=== PATIENT | male | born 1960 | race Caucasian/White ===

== ENCOUNTER 2016-08-29 23:25 | Inpatient (IN) | payer BC ==
[~2016-08-29 23:25] MED LIST: Heparin 2 UNITS/ML IVPREMIX* 3,000 ML IV ONE; Iohexol 350 (CONTRAST) 200 ML MDV IV ONE; Lidocaine 1% INJ* 10 MG/ML 30 ML SDV ONE; Midazolam* 1 MG/ML 5 ML VIAL (5 MG) ONE; fentaNYL* 50 MCG/ML 2 ML VIAL (100 MCG VIAL) ONE; nitroGLYCERIN DRIP* 250 ML ONE
[2016-08-29] MEDS ORDERED: Iohexol 350 (CONTRAST) 200 ML MDV IV ONE (23:42)
[2016-08-29] MEDS ORDERED: Heparin 2 UNITS/ML IVPREMIX* 2,000 ML IV ONE (23:42)
[2016-08-30] MEDS ORDERED: Bivalirudin(*) 250 MG VIAL ONE (00:11)
[2016-08-30] MEDS ORDERED: Adenosine* 3 MG/ML VIAL ONE (00:11)
[2016-08-30] MEDS ORDERED: NitroPRUSSide* 25 MG/ML 2 ML VIAL IVPB ONE (00:11)
[2016-08-30] MEDS ORDERED: Acetaminophen TAB* 325 MG PO PRN (02:29)
[2016-08-30] MEDS ORDERED: Docusate CAP* 100 MG PO PRN (02:29)
[2016-08-30] MEDS ORDERED: fentaNYL* 50 MCG/ML 2 ML VIAL (100 MCG VIAL) IV PRN (02:29)
[2016-08-30] MEDS ORDERED: Nitroglycerin TAB 0.4 MG* 0.4 MG TAB SL PRN (02:29)
[2016-08-30] MEDS ORDERED: Ondansetron INJ* 2 MG/ML VIAL IV PRN (02:29)
[2016-08-30] MEDS ORDERED: NS 0.9% 1000 ML* 1,000 ML IV SCH (02:30)
[2016-08-30] MEDS ORDERED: Albuterol HFA INHALER* 8 gm MDI INH PRN (02:44)
[2016-08-30] MEDS ORDERED: nitroGLYCERIN DRIP* 25,000 MCG in PREMIX* 0 ML IV SCH (04:00)
[2016-08-30 06:06] LABS: Hematocrit 40 % (42-52); Hemoglobin 13.7 g/dl (14.0-18.0); Mean Corpuscular HGB Conc 35 g/dl (31-36); Mean Corpuscular Hemoglobin 33 pg (27-31); Mean Corpuscular Volume 95 fL (80-94); Mean Platelet Volume 7 um3 (7.4-10.4); Red Blood Count 4.21 10^6/ul (4.0-5.4); Red Cell Distribution Width 16 % (10.5-15); White Blood Count 10.3 10^3/ul (3.5-10.8)
[2016-08-30] MEDS: Atorvastatin* 80 MG TAB PO SCH ×2 (06:18→17:17)
[2016-08-30 06:25] LABS: Albumin 3.3 g/dL (3.2-5.2); BUN/Creatinine Ratio 20.8 (8-20); Calcium 8.7 mg/dL (8.6-10.3); EGFR African American 144.2 (>60); EGFR Non-African American 112.1 (>60); Globulin 2.8 g/dL (2-4); HDL Cholesterol 72.9 mg/dL; Potassium 3.9 mmol/L (3.5-5.0); Total Bilirubin 0.8 mg/dL (0.2-1.0); Total Protein 6.1 g/dL (6.4-8.9)
[2016-08-30 06:33] LABS: Troponin I 3.2 ng/mL (<0.04)
[2016-08-30] MEDS: Aspirin Low Dose CHEW TAB* 81 MG PO SCH (08:53)
[2016-08-30] MEDS: Metoprolol Tartrate TAB* 25 MG PO SCH ×3 (08:53→19:54)
[2016-08-30] MEDS: Ticagrelor* 90 MG TAB PO SCH ×2 (08:53→19:54)
[2016-08-30] MEDS ORDERED: Pneumococcal *Vac Polyvalent 0.5 ML VIAL IM ONE (09:00)
[2016-08-30] MEDS: Mometasone/Formoter 200/5 MDI INH SCH ×2 (10:16→19:52)
--- NOTE | 2016-08-30 11:54 | ECHO ---
Patient: JERSEY BAIG [facility] Rec#: [id number] : 1960 Date: 08/30/2016 Age: 56y Height: 180 cm / 70.9 in Weight: 107 kg / 235.8 lbs Sex: M BSA: 2.26 Room#: [facility] Admit Date#: 08/30/2016 Type: Inpatient Referring: Luis Gilbert MD Reading: Luis Gilbert MD Ear Nose Throat Physician: Pranay Larios RDCS Transthoracic Echocardiogram Indication: S/P PCI Rhythm: NSR Findings History: STEMI Technical Comments: The study quality is fair. Completed 1135 The study is technically limited due to poor parasternal windows. The study is technically limited due to patient body habitus. Left Ventricle: The left ventricular chamber size is normal. Global left ventricular wall motion and contractility are within normal limits. There is normal left ventricular systolic function. The estimated ejection fraction is 50-55%. Left Atrium: The left atrial chamber size is normal. Right Ventricle: The right ventricular cavity size is normal. The right ventricular global systolic function is normal. Right Atrium: The right atrial cavity size is normal. Aortic Valve: The aortic valve is trileaflet. There is trace to mild aortic regurgitation. There is no evidence of aortic stenosis. Mitral Valve: The mitral valve leaflets appear normal. There is a trace of mitral regurgitation. There is no evidence of mitral stenosis. Tricuspid Valve: The tricuspid valve appears normal in structure and function. There is a physiologic tricuspid regurgitation. Pulmonic Valve: The pulmonic valve structure is not well visualized. Pericardium: There is no pericardial effusion. Aorta: There is no dilatation of the ascending aorta. The aortic arch is not well visualized. There is no dilation of the aortic root. Pulmonary Artery: The main pulmonary artery is not well visualized. Venous: The inferior vena cava appears normal in size. There is a greater than 50% respiratory change in the inferior vena cava dimension. Conclusions The study is technically limited due to patient body habitus. The study is technically limited due to poor parasternal windows. The left ventricular chamber size is normal. Global left ventricular wall motion and contractility are within normal limits. Overall LV EF is estimated at 55 %. No significant wall motion abnormalities are noted. No significant valvular disease: There is a trace to mild aortic regurgitation. There is a trace of mitral regurgitation. There is a physiologic tricuspid regurgitation. No reports of prior studies are offered for comaprison. Measurements Name Value Normal Range RVIDd (AP) 2D 2.6 cm (0.9 - 2.6) RVDdMajor (2D) 2.2 cm (2.2 - 4.4) RAd ISD 4CH 5.5 cm (3.4 - 4.9) RA (A4C)W 3 cm (2.9 - 4.6) IVSd (2D) 1.1 cm (0.6 - 1) LVPWd (2D) 0.6 cm (0.6 - 1) LVIDd (2D) 5.4 cm (3.6 - 5.4) LVIDs (2D) 3.8 cm - LV FS (2D) 28 % (25 - 45) Aortic Annulus 2.1 cm (1.4 - 2.6) Ao root diameter (2D) 3.2 cm (2.1 - 3.5) Ascending Ao 3.2 cm (2.1 - 3.4) LA dimension (AP) 2D 3.8 cm (2.3 - 3.8) LAd ISD 4CH 5.9 cm (2.9 - 5.3) LA ISD 4CH W 3.1 cm (2.5 - 4.5) Name Value Normal Range LA ESV SP 4CH (A/L) 61 ml - LA ESV SP 2CH (A/L) 50 ml - LA ESV BP (A/L) 57 ml - LA ESV BP (A/L) index 25.55 ml/m2 - LA ESV SP 4CH (MOD) 53.58 ml - LA ESV SP 2CH (MOD) 49 ml - Name Value Normal Range MV E-wave Vmax 0.71 m/sec - MV deceleration time 145 msec - MV A-wave Vmax 0.76 m/sec - MV E:A ratio 0.93 ratio - LV septal e' Vmax 0.1 m/sec - LV lateral e' Vmax 0.1 m/sec - LV E:e' septal ratio 7.1 ratio - LV E:e' lateral ratio 7.1 ratio - Name Value Normal Range LVOT diameter 2 cm - LVOT Vmax 1.2 m/sec - Name Value Normal Range IVC diameter 1.05 cm - Name Value Normal Range PV Vmax 0.92 m/sec -
--- NOTE | 2016-08-30 12:55 | HP ---
ADMISSION HISTORY AND PHYSICAL: DATE OF ADMISSION: 08/30/16 CHIEF COMPLAINT: The patient transferred from [facility] Emergency Room with acute ST segment elevation inferior wall myocardial infarction. HISTORY OF PRESENT ILLNESS: The patient is a pleasant 56-year-old gentleman with no prior known cardiac history. Specifically, he denies any history of myocardial infarction, congestive heart failure, significant heart rhythm disturbance. The patient was in his usual state of health and yesterday while he was lying in bed at 8:30 p.m., he started developing the onset of bilateral elbow discomfort with radiation to the jaw. He apparently had a dental issue in the past and his gave him Percocet to see if it would help. Within 30 minutes, he started developing chest heaviness as well. It was not getting better and as such they decided to go to [facility]. As soon as he arrived, they performed an EKG and reportedly diagnosed him with an acute ST segment elevation inferior wall myocardial infarction. The emergency provider there then reportedly called [facility]'s Emergency Room and spoke to Dr. Jerzy Ozuna to accept the patient in transfer. I was then called through the field laboratory operator at [facility], stating that the emergency room provider at [facility] was on the phone. I connected with her and she stated that she had a patient that had been accepted by Dr. Jerzy Ozuna in transfer and was having a STEMI. After I got the basic information, I then called Dr. Ozuna and I spoke to him and asked him if he had already called in a STEMI. At that point, I called the field laboratory operator myself and asked her to notify a STEMI alert so as to get our staff in as quickly as possible to be ready for him so that we could possibly even bypass the emergency room. On arrival of the patient, he was still having ongoing symptoms. The risks and benefits of cardiac catheterization were explained to him and a brief examination ensued. He understood the risks and benefits and we opted to bring him to the catheterization lab on an ED bypass basis. Of note, when I had spoken to the provider over at [facility], I had asked her to bolus the patient with 4000 units of heparin, which she did. In the emergency room, we gave 180 mg of Brilinta. The patient was subsequently brought to the cardiovascular lab for emergent cath and possible intervention. PAST MEDICAL HISTORY: Includes chronic obstructive lung disease, hyperlipidemia , non-insulin requiring diabetes and anxiety. His cardiac risk factors included diabetes, high cholesterol and a significant smoking history of some 45 years of smoking 3 packs a day, only recently trying to cut down. PAST SURGICAL HISTORY: No significant surgical history. ALLERGIES: He has no known drug allergies. FAMILY HISTORY: Also significant for brother who had two bypasses, first one in his 40s; a brother who had stent in his 50s. REVIEW OF SYSTEMS: Pertinent to proceeding to the cardiovascular laboratory. The patient denied any history of hematochezia, hematemesis or hematuria. Denied any known history of renal insufficiency or any known history of dye allergy. PHYSICAL EXAMINATION VITAL SIGNS: Briefly, on patient's arrival on the ambulance ride in, blood pressure 101/69, pulse 69, respirations 18. NECK: Supple with no increased JVP. LUNGS: Clear. HEART: Revealed a regular rate and rhythm. Quite distant in nature due to large chest size. ABDOMEN: Significantly obese, soft, and nontender. EXTREMITIES: Without edema. The femoral pulse was present without significant bruit. DIAGNOSTIC STUDIES AND LABORATORY DATA: Review of EKG from [facility] revealed acute ST segment elevation in II, III and aVF with reciprocal change in aVL. Minimal T-wave inversion in V1 and V2. OVERALL ASSESSMENT: The patient now presents in the throes of an acute inferior wall myocardial infarction. His symptoms are somewhat better but not gone. At this point, the risks and benefits and alternatives were explained to the patient and he understands them and wishes to proceed. The patient has already had heparin therapy, Brilinta therapy and aspirin. Further management will be made pending results at the time of cardiac catheterization. CC: CORY Torres, at Dr. Miller Wilhelm's office in [place], [place]. * [id number]/[facility]PS #: [id number] MTDD
[2016-08-30 13:18] LABS: Troponin I 8.68 ng/mL (<0.04)
[2016-08-30] MEDS ORDERED: oxyCODONE/Acetamin 5/325 MG* TAB PO PRN (17:10)
[2016-08-30 18:39] LABS: Troponin I 7.99 ng/mL (<0.04)
[2016-08-30 19:05] LABS: Hematocrit 42 % (42-52); Hemoglobin 14.1 g/dl (14.0-18.0); Mean Corpuscular HGB Conc 34 g/dl (31-36); Mean Corpuscular Hemoglobin 32 pg (27-31); Mean Corpuscular Volume 96 fL (80-94); Mean Platelet Volume 8 um3 (7.4-10.4); Red Blood Count 4.37 10^6/ul (4.0-5.4); Red Cell Distribution Width 16 % (10.5-15); White Blood Count 12.1 10^3/ul (3.5-10.8)
[2016-08-30] MEDS: BuPROPion XL* 150 MG TAB.XL PO SCH (19:54)
[2016-08-30] MEDS: Cetirizine* 10 MG TAB PO SCH (19:54)
[2016-08-30] MEDS: Sertraline* 100 MG TAB PO SCH (19:54)
[2016-08-30] MEDS: CMC:Pantoprazole TAB (NF) 40 MG TAB PO SCH (19:55)
[2016-08-30] MEDS: PTO:Linagliptin (NF) 5 MG TAB PO SCH (19:55)
[2016-08-30] MEDS ORDERED: Omeprazole CAP* 20 MG PO SCH (21:00)
[2016-08-31 06:50] LABS: Hematocrit 42 % (42-52); Hemoglobin 14.4 g/dl (14.0-18.0); Mean Corpuscular HGB Conc 34 g/dl (31-36); Mean Corpuscular Hemoglobin 33 pg (27-31); Mean Corpuscular Volume 96 fL (80-94); Mean Platelet Volume 8 um3 (7.4-10.4); Red Blood Count 4.36 10^6/ul (4.0-5.4); Red Cell Distribution Width 15 % (10.5-15); White Blood Count 10.7 10^3/ul (3.5-10.8)
[2016-08-31 06:59] LABS: Albumin 3.5 g/dL (3.2-5.2); BUN/Creatinine Ratio 13.4 (8-20); Calcium 9.3 mg/dL (8.6-10.3); EGFR African American 156.7 (>60); EGFR Non-African American 121.8 (>60); Globulin 2.9 g/dL (2-4); Potassium 4.4 mmol/L (3.5-5.0); Total Bilirubin 1.1 mg/dL (0.2-1.0); Total Protein 6.4 g/dL (6.4-8.9)
[2016-08-31] MEDS: Aspirin Low Dose CHEW TAB* 81 MG PO SCH (08:00)
[2016-08-31] MEDS: Metoprolol Tartrate TAB* 25 MG PO SCH ×2 (08:01→20:34)
[2016-08-31] MEDS: Ticagrelor* 90 MG TAB PO SCH ×2 (08:01→20:34)
[2016-08-31] MEDS: CMC:Pantoprazole TAB (NF) 40 MG TAB PO SCH (08:01)
[2016-08-31] MEDS ORDERED: Pneumococcal *Vac Polyvalent 0.5 ML VIAL IM ONE (09:00)
[2016-08-31] MEDS: Mometasone/Formoter 200/5 MDI INH SCH ×2 (10:16→22:34)
[2016-08-31] MEDS: PTO:Linagliptin (NF) 5 MG TAB PO SCH (18:35)
[2016-08-31] MEDS: Atorvastatin* 80 MG TAB PO SCH (18:35)
[2016-08-31] MEDS: Cetirizine* 10 MG TAB PO SCH (20:34)
[2016-08-31] MEDS: Sertraline* 100 MG TAB PO SCH (20:34)
[2016-08-31] MEDS: BuPROPion XL* 150 MG TAB.XL PO SCH (20:34)
[2016-09-01 07:36] VITALS: BP 111/67
[2016-09-01] MEDS: Aspirin Low Dose CHEW TAB* 81 MG PO SCH (09:14)
[2016-09-01] MEDS: Ticagrelor* 90 MG TAB PO SCH (09:14)
[2016-09-01] MEDS: CMC:Pantoprazole TAB (NF) 40 MG TAB PO SCH (09:15)
[2016-09-01] MEDS: Metoprolol Tartrate TAB* 25 MG PO SCH (09:15)
[2016-09-01] MEDS: Mometasone/Formoter 200/5 MDI INH SCH (09:36)
[2016-09-01 10:25] LABS: Hematocrit 45 % (42-52); Hemoglobin 15.1 g/dl (14.0-18.0); Mean Corpuscular HGB Conc 34 g/dl (31-36); Mean Corpuscular Hemoglobin 32 pg (27-31); Mean Corpuscular Volume 96 fL (80-94); Mean Platelet Volume 8 um3 (7.4-10.4); Red Blood Count 4.65 10^6/ul (4.0-5.4); Red Cell Distribution Width 16 % (10.5-15); White Blood Count 13.4 10^3/ul (3.5-10.8)
[2016-09-01 17:30] LABS: Heparin PF4 Ab Reactivity 8 % (<20); Heparin PF4 Antibody Interp Negative (Negative)
--- NOTE | 2016-09-01 21:35 | CATH ---
CARDIAC CATHETERIZATION AND INTERVENTIONAL REPORT: DATE OF PROCEDURE: 08/29/2016 - ROOM #445 DATE OF DICTATION: 09/01/16 FAMILY DOCTOR: Dr. Shanta Edgar, [place]. INDICATION FOR PROCEDURE: The patient presents with ST-segment elevation inferior wall myocardial infarction. PROCEDURE: Coronary arteriography, left heart catheterization, thrombectomy, and placement of a 4.0 x 20 mm Synergy drug-eluting stent overlapped distally with a 3.5 x 12 mm long Synergy drug-eluting stent, post dilated to 4.2 and 3.6 mm respectively. DESCRIPTION OF PROCEDURE: The patient was interviewed and examined in the emergency room where the risks and benefits were explained, he understood them and wished to proceed. Initially, he was brought to cardiovascular lab 1 where the patient was prepped and draped in a sterile fashion. The right groin area was anesthetized with 1% lidocaine. On attempting to fluoro for locating the femoral artery, it became apparent that the equipment was not functioning normally, as the monitors were not working. The patient emergently was transferred to record label intern 2, and reprepped and draped in a sterile fashion. The right femoral artery area was again anesthetized and the right femoral artery was cannulated and a 6.5 curve sheath was placed. Coronary arteriography was performed utilizing a 5-Fijian FL4 curve left Jorge catheter. The right coronary artery was cannulated utilizing an ART 6-Fijian guide with side holes. Of note, the patient had received 4000 units of heparin in the emergency room and also received Brilinta therapy and aspirin therapy. The patient was bolused with Angiomax and an Angiomax drip was started. An 0.014 All Star wire was advanced down the right coronary artery and a Pronto V4 extraction 6-Fijian catheter was utilized for thrombectomy. Following this, the 4.0 x 20 mm stent was deployed. There was concern at the distal area of the stent placement and as such a second 3.5 mm x 12 mm Synergy stent was deployed. Following this, post deployment inflations were made utilizing a 4.0 x 8 mm long NC Emerge for the proximal stent in the overlapping area. Following that, additional injections were made into the left coronary artery. Left heart catheterization was then performed utilizing a 5-Fijian pigtail catheter advanced to the ascending aorta. The catheter was then passed across the aortic valve into the left ventricle where left ventricular pressure was recorded. Pullback was performed. Left ventriculography was not performed at that time. Additional injections into the left coronary artery were performed to further assess the left coronary artery. Following this, injection was made into right femoral sheath to assess the eligibility to utilize closure device. It was found to be acceptable for this and as such a 6/7 Fijian Mynx closure device was deployed with good hemostasis. The total contrast used was 140 cc of Omnipaque dye. The radiation exposure included 8.7 minutes of fluoro time. The air kerma radiation was 1514 milligray. Of note, during the case when SALLIE-2.5 flow was noted in the right coronary artery, the patient received bolus of 100 mcg of Nipride with improvement of flow. RESULTS: HEMODYNAMIC DATA: Left heart catheterization - central aortic pressure was recorded at 125/74 with a mean of 96, left ventricular pressure was 125 over left ventricular end- diastolic pressure of 29. CORONARY ARTERIOGRAPHY: A. Left coronary artery: 1. Left main - widely patent with no significant lesion seen. 2. Left anterior descending artery - there was mild narrowing noted in the proximal portion of left anterior ascending artery just after the first septal retort unloader of approximately 25%. More proximal to that was a longer segment of 30% narrowing with calcification seen. The rest of the left anterior descending artery supplied the mid anterior to apical region on to the distal inferior wall. No significant obstruction was seen in that vessel or the diagonal branches. 3. Circumflex artery - a nondominant vessel supplying a thin first obtuse marginal branch followed by a moderate size mid obtuse marginal branch which bifurcated to an upper and a smaller lower branch. B. Right coronary artery - a dominant vessel supplying two thin PDAs and two posterior left ventricular branches. There was a diffusely dissected mid segment with haze noted with stenosis as much as 90%. The rest of the right coronary artery had mild disease seen to the distal area prior to the PDA with 10% to 20% narrowing seen. INTERVENTION INTO RIGHT CORONARY ARTERY: Successful reduction of dissected 90% mid lesion with thrombectomy with placement of a 4.0 x 20 mm long Synergy drug-eluting stent overlapped with a 3.5 x 12 mm long Synergy drug-eluting stent dilated proximally to 4.2 mm. 0% residual stenosis. OVERALL ASSESSMENT: Successful intervention into dissected mid right coronary artery with drug- eluting stent placement utilizing a 4.0 x 20 mm long Synergy drug- eluting stent overlapped with a 3.5 x 12 mm long Synergy drug-eluting stent with SALLIE-3 flow, no dissection seen, and 0% residual stenosis. The patient will be maintained on dual-antiplatelet therapy in addition to aggressive risk factor management. Smoking cessation is paramount to his overall success of the ability to slow down progression of coronary artery disease. CC: Dr. Shanta Edgar *, CORY Torres at Dr. Miller Kimball office in [place] [id number]/[facility] #: [id number] [facility]
--- NOTE | 2016-09-01 23:06 | DS ---
DISCHARGE SUMMARY: DATE OF ADMISSION: 08/29/16 DATE OF DISCHARGE: 09/01/16 PRIMARY CARE PHYSICIAN: CORY Torres at Dr. Kimball' office in [place]. DISCHARGE DIAGNOSES: 1. Inferior wall ST elevation infarct. 2. Tobacco use. 3. Chronic obstructive pulmonary disease. 4. Hyperlipidemia. 5. Diabetes type 2. 6. Obesity. 7. Chronic back pain. 8. Family history of premature coronary disease. CONDITION AT DISCHARGE: Stable. PROCEDURES: Cardiac cath, stent placement by Dr. Gilbert on 08/20/16, 4.0 x 20, 3.5 x 12 Synergy drug-eluting stents RCA. Echocardiogram. DISCHARGE MEDICATIONS: 1. Aspirin 81 mg daily. 2. Albuterol 2 puffs q.4 hours p.r.n. 3. Lipitor 80 mg daily. 4. Wellbutrin XL 150 mg h.s. 5. Zyrtec 10 mg h.s. 6. Linagliptin 5 mg p.o. at 1900 hours. 7. Lopressor 25 mg b.i.d. 8. Dulera 200-5 nebulizer. 9. Nitroglycerin 0.4 sublingual p.r.n. 10. Protonix 40 mg daily. 11. Zoloft 100 mg at bedtime. 12. Brilinta 90 b.i.d. FOLLOWUP APPOINTMENTS: With [facility] [place] in 1 to 2 weeks. ACTIVITY: No strenuous exertion for 1 week, to not lift more than 20 pounds for 3 days. Wound care shower only for 2 days. DIET: Carbohydrate controlled, low fat, low cholesterol. HISTORY: See H and P. LABS: CBC on 08/30/16 here hemoglobin 13.7, platelet count low at 143,000. He had been normal at 182 on 08/05/16. Subsequent platelet count dropped to 129 yesterday, today's platelet count is pending. He did receive heparin at [place] and here. He has no known history of heparin allergy. He does have macrocytosis with a slightly elevated alkaline phosphatase at 113 on 08/05/16 with normal alkaline phosphatase here at admission. His troponin peaked at 8.68 , CPK-MB at 118.2. Post PCI, BMP remained stable. His LDL was 116 with total cholesterol of 201, triglycerides of 62, HDL 72.9 on admission. EKG 09/01/16 shows nondiagnostic small inferior Q waves and less than [address] elevation in lead II. He had no repolarization abnormalities. HOSPITAL COURSE: He presented with an inferior wall ST elevation infarct, underwent catheterization by Dr. Gilbert with a finding of high-grade right coronary artery stenosis which was stented with a 4.0 x 20 and 3.5 x 12 drug eluting stent with excellent angiographic results. Echocardiogram on 08/30/16 revealed LVEF of 50% to 55% with normal wall motion. He had a very small infarct by enzymes. He had no in-hospital complications including chest pain, groin issues, arrhythmias or hypotension. He is tolerating his medical regimen including high-dose statin, dual antiplatelet therapy, low dose beta-paty. He has followup arrangements to the outpatient clinic here at [place]. He received full discharge instructions, has committed to stopping smoking. He has an issue with Chantix in the past with vivid nightmares. His platelet antibody level is pending at the time of discharge as is his repeat platelet count from today. He is aware of his mild thrombocytopenia currently of unknown etiology. CC: CORY Torres at Dr. Kimball' office in [place]; Dr. Gilbert* [id number]/[facility] #: [id number] [facility]
== END 2016-09-01 10:58 | disposition home or self-care (01) | DRG 174 ==
LOC: CHICATH 23:25 → ICU 08-30 01:17 → MEDTELE 08-31 11:38
PROVIDERS: ADMIT Internal Medicine Cardiovascular Disease; ATTEND Internal Medicine Cardiovascular Disease
PROC: 02C03ZZ Extirpation of Matter from Coronary Artery, One Artery, Percutaneous Approach (ICD-10-PCS; 2016-08-29)
PROC: 3E03317 Introduction of Other Thrombolytic into Peripheral Vein, Percutaneous Approach (ICD-10-PCS; 2016-08-29)
PROC: 4A023N7 Measurement of Cardiac Sampling and Pressure, Left Heart, Percutaneous Approach (ICD-10-PCS; 2016-08-29)
PROC: B2111ZZ Fluoroscopy of Multiple Coronary Arteries using Low Osmolar Contrast (ICD-10-PCS; 2016-08-29)
PROC: 3E073KZ Introduction of Other Diagnostic Substance into Coronary Artery, Percutaneous Approach (ICD-10-PCS; 2016-08-29)
PROC: 027035Z Dilation of Coronary Artery, One Artery with Two Drug-eluting Intraluminal Devices, Percutaneous Approach (ICD-10-PCS; principal; 2016-08-29 15:00)
DX: I21.19 ST elevation (STEMI) myocardial infarction involving other coronary artery of inferior wall (principal); D69.6 Thrombocytopenia, unspecified; J44.9 Chronic obstructive pulmonary disease, unspecified; E78.5 Hyperlipidemia, unspecified; E11.9 Type 2 diabetes mellitus without complications; D75.89 Other specified diseases of blood and blood-forming organs; E66.9 Obesity, unspecified; G89.29 Other chronic pain; M54.9 Dorsalgia, unspecified; Z82.49 Family history of ischemic heart disease and other diseases of the circulatory system; Z79.82 Long term (current) use of aspirin; Z79.02 Long term (current) use of antithrombotics/antiplatelets; F41.9 Anxiety disorder, unspecified; F17.210 Nicotine dependence, cigarettes, uncomplicated; I25.10 Atherosclerotic heart disease of native coronary artery without angina pectoris; Z68.33 Body mass index [BMI] 33.0-33.9, adult
CPT/HCPCS: 36415; 80053; 80061; 82550; 82553; 84484; 85025; 85027; 85730; 86022; 93005; 93306; 94640; 94760; 99406; A9270-GY; C1725; C1757; C1760; C1769; C1876; C1887; C9606-RC; J0153; J0583; J1644; J2250; J3010

== ENCOUNTER 2019-03-27 11:21 | Inpatient (IN) | payer BC ==
--- NOTE | 2019-03-27 11:36 | ED ---
Shortness of Breath - HPI Summary HPI Summary: 58 year old M presenting to [facility] from primary care provider Dr. Kimball's office for further workup accompanied by complains of worsening shortness of breath since 1 month ago. Patient is retaining fluid per . Patient has gained 30 pounds in 1 month per . Patient reports multiple ecchymotic areas on his bilateral arms. states that patient has been having diarrhea daily for which he has been taking anti diarrheals. Patient additionally has urinary urgency per . The patient rates the pain 0/10 in severity. Symptoms aggravated by nothing. Symptoms alleviated by nothing. Patient had AK in 2017 which resulted in 2 stents per . Patient drinks alcohol but has not in a while per . - History of Current Complaint Chief Complaint: EDShortnessOfBreath Time Seen by Provider: 03/27/19 11:27 Hx Obtained From: Patient, Family/Film Processor - Onset/Duration: Lasting Weeks - 4, Still Present Timing: Constant Current Severity: None Aggravating Factors: Nothing Alleviating Factors: Nothing - Allergy/Home Medications Allergies/Adverse Reactions: Allergies Allergy/AdvReac Type Severity Reaction Status Date / Time No Known Allergies Allergy Verified 03/27/19 11:29 Home Medications: Home Medications Atorvastatin* [Lipitor 80 MG*] 80 mg PO DAILY 03/27/19 [History Confirmed ] Empaglifozin (NF) [Jardiance (Nf)] 10 mg PO DAILY 03/27/19 [History Confirmed ] Furosemide TAB* [Lasix TAB*] 20 mg PO DAILY 03/27/19 [History Confirmed 03/27/19 ] HYDROcodone/ACETAMIN 5-325 MG* [Molino 5-325 TAB*] 1 tab PO BID PRN 03/27/19 [ History Confirmed 03/27/19] Linagliptin (NF) [Tradjenta (NF)] 5 mg PO DAILY 03/27/19 [History Confirmed ] Montelukast Sodium TAB* [Singulair TAB*] 10 mg PO BEDTIME 03/27/19 [History Confirmed 03/27/19] Multivitamins/Minerals TAB* [Theragran/minerals TAB*] 1 tab PO DAILY 03/27/19 [ History Confirmed 03/27/19] Revefenacin [Yupelri] 175 mcg IH DAILY 03/27/19 [History Confirmed 03/27/19] guaiFENesin ER TAB [Mucinex*] 600 mg PO BID 03/27/19 [History Confirmed 03/27/19 ] hydrOXYzine HCL TAB* [Atarax 25 MG TAB*] 25 mg PO TID PRN 03/27/19 [History Confirmed 03/27/19] traZODone TAB* [Desyrel TAB*] 150 mg PO BEDTIME 03/27/19 [History Confirmed ] PMH/Surg Hx/FS Hx/Imm Hx Endocrine/Hematology History: Reports: Hx Diabetes Respiratory History: Reports: Hx Chronic Obstructive Pulmonary Disease (COPD), Hx Seasonal Allergies, Hx Sleep Apnea - Not diagnosed, family thinks likely GI History: Reports: Hx Gastroesophageal Reflux Disease, Hx Ulcer, Other GI Disorders - Polyps present on previous colonoscopy History: Reports: Other Problems/Disorders - Possibly enlarged prostate Musculoskeletal History: Reports: Hx Arthritis, Hx Back Problems Sensory History: Reports: Hx Contacts or Glasses Opthamlomology History: Reports: Hx Contacts or Glasses Neurological History: Reports: Hx Headaches Psychiatric History: Reports: Hx Anxiety, Hx Depression - Surgical History Surgery Procedure, Year, and Place: stent Aug 2016 Infectious Disease History: No Infectious Disease History: Denies: Traveled Outside the [place] in Last 30 Days - Family History Known Family History: Positive: Other - cancer - Social History Alcohol Use: Occasionally Alcohol Amount: 8-10 drinks 1-2x per week Hx Substance Use: No Substance Use Type: Reports: None Hx Tobacco Use: Yes Smoking Status (MU): Current Every Day Smoker Type: Cigarettes Amount Used/How Often: 13 cigarettes smoked a day Have You Smoked in the Last Year: Yes Review of Systems Positive: Other - retaining fluid Positive: Shortness Of Breath Positive: Diarrhea, Other - recent weight gain Positive: urgency Positive: Other - multiple ecchymotic areas on his bilateral arms All Other Systems Reviewed And Are Negative: Yes Physical Exam - Summary Physical Exam Summary: Appearance: The patient is well-nourished in no acute distress and in no acute pain. Patient is anicteric Skin: The skin is warm and dry, and skin color reflects adequate perfusion. He has some ecchymotic areas HEENT: The head is normocephalic and atraumatic. The pupils are equal and reactive. The conjunctivae are clear and without drainage. Nares are patent and without drainage. Mouth reveals moist mucous membranes, and the throat is without erythema and exudate. The external ears are intact. The ear canals are patent and without drainage. The tympanic membranes are intact. Neck: The neck is supple with full range of motion and non-tender. There are no carotid bruits. There is no neck vein distension. Respiratory: Chest is non-tender. Lungs are clear to auscultation and breath sounds are symmetrical and equal. Cardiovascular: Heart is regular rate and rhythm. There is no murmur or rub auscultated. There is peripheral edema and pulses are symmetrical and equal. Abdomen: The abdomen is soft, non-tender, and distended. There are normal bowel sounds heard in all four quadrants and there is no organomegaly palpated. Musculoskeletal: There is no back tenderness noted. Extremities are non-tender with full range of motion. There is good capillary refill. There is peripheral edema or calf tenderness elicited. He has a little bit of clubbing but not no palmar erythema. Neurological: Patient is alert and oriented to person, place and time. The patient has symmetrical motor strength in all four extremities. Cranial nerves are grossly intact. Deep tendon reflexes are symmetrical and equal in all four extremities. Psychiatric: The patient has an appropriate affect and does not exhibit any anxiety or depression. Triage Information Reviewed: Yes Vital Signs On Initial Exam: Initial Vitals Temp Pulse Resp BP Pulse Ox 98.5 F 69 20 142/78 85 03/27/19 11:22 03/27/19 11:22 03/27/19 11:22 03/27/19 11:22 03/27/19 11:22 Vital Signs Reviewed: Yes Diagnostics - Vital Signs Vital Signs Temp Pulse Resp BP Pulse Ox 03/27/19 11:22 98.5 F 69 20 142/78 85 - Laboratory Result Diagrams: 03/27/19 11:52 03/27/19 11:52 Lab Statement: Any lab studies that have been ordered have been reviewed, and results considered in the medical decision making process. - Radiology CXR Radiology Interpretation Completed By: Radiologist Summary of Radiographic Findings: NO ACUTE CARDIOPULMONARY PROCESS BY RADIOGRAPH. ED physician has reviewed this report. - CT CT Abd/Pel CT Interpretation Completed By: Radiologist Summary of CT Findings: Splenomegaly with nodular appearing liver. Possibility of cirrhosis should BE considered. There is moderate degree of ascites noted. No abnormal dilatation of bowel is noted. ED physician has reviewed this report. - EKG 1145 Cardiac Rate: NL - 68 BPM EKG Rhythm: Sinus Rhythm Summary of EKG Findings: Normal sinus rhythm, normal ST, no ectopy, no STEMI Re-Evaluation - Re-Evaluation First Eval Re-Evaluation Time: 16:39 Comment: Internal medicine resident in ED to do paracentesis supervised by Dr. Wilhelm Second Eval Re-Evaluation Time: 18:05 Comment: discussed dispo plan with patient. patient agreeable to discharge Third Eval Re-Evaluation Time: 18:15 Comment: patient's O2 sat in the 80s per nurse. will consult hospitalist for admission Course/Dx - Course Course Of Treatment: Mr. Coughlin has a long history of smoking and drinking. He is a daily drinker. He has had some chronic development of increased abdominal girth, shortness of breath, easy bruising and malaise. He comes in from Dr. Snyder office where he presented for the shortness of breath. His pulse ox was noted to be in the 80s and he was started on some oxygen. On arrival here he appeared to be having some ascites but was anicteric and not jaundiced. Labs were obtained and CT scan of the abdomen which showed moderate ascites. It was my feeling that this ascites may be interfering with his diaphragmatic excursion and that made be the source of shortness of breath. I consult with medicine who came and performed a paracentesis however they could only get 70 cc off. He did not improve much with that and his pulse ox dropped for try to take him off the oxygen therefore I consult medicine for admission. - Diagnoses Provider Diagnoses: Ascites - Physician Notifications Discussed Care of Patient With: Brody Barnhart Time Discussed With Above Provider: 15:03 Instructed by Provider To: Other - Dr. Barnhart, GI, recommends consulting surgery. Spoke with Dr. Bennett, surgery, at 15:05 who recommends doing a paracentesis in the ED. Spoke with Dr. Freeman, hospitalist, at 18:31 who agrees to admit patient. Discharge ED - Sign-Out/Discharge Documenting (check all that apply): Patient Departure - Admit Patient Received Moderate/Deep Sedation with Procedure: No - Discharge Plan Condition: Stable Disposition: ADMITTED TO [facility] Patient Education Materials: Ascites (ED) Referrals: Brody Barnhart MD [Medical Doctor] - 2 Days Additional Instructions: Follow up with Dr. Barnhart in the next 2-3 days. Return to the Emergency Department for new or worsening symptoms. - Billing Disposition and Condition Condition: STABLE Disposition: Admitted to [facility] - Attestation Statements Document Initiated by Liudmila: Yes Documenting Scribe: Cecilia Mckeon Provider For Whom Scribe is Documenting (Include Credential): Milton Ozuna MD Scribe Attestation: ICecilia, scribed for Milton Ozuna MD on 03/27/19 at 2059. Scribe Documentation Reviewed: Yes Provider Attestation: The documentation as recorded by the Cecilia dunn accurately reflects the service I personally performed and the decisions made by me, Milton Ozuna MD Status of Scribe Document: Viewed
[2019-03-27 12:10] LABS: ABS Eosinophils 0.1 10^3/ul (0-0.6); ABS Lymphocytes 1.1 10^3/ul (1.0-4.8); ABS Neutrophils 6.5 10^3/ul (1.5-7.7); Eosinophil % 1.6 %; Hematocrit 46 % (42-52); Lymphocyte % 12.2 %; Mean Corpuscular HGB Conc 35 g/dL (31-36); Mean Corpuscular Hemoglobin 34 pg (27-31); Mean Corpuscular Volume 97 fL (80-94); Mean Platelet Volume 9.6 fL (7.4-10.4); Nucleated Red Blood Cells % 0.1; Platelet Count 126 10^3/uL (150-450); Red Blood Count 4.77 10^6 /uL (4.18-5.48); Red Cell Distribution Width 19 % (10-15); White Blood Count 8.7 10^3/uL (3.5-10.8)
[2019-03-27 12:18] LABS: Activated Partial Thrombo Time 36.9 seconds (26.0-38.0); Calcium 8.4 mg/dL (8.6-10.3); INR 1.17 (0.82-1.09); Potassium 4.2 mmol/L (3.5-5.0)
[2019-03-27 12:21] LABS: Troponin I 0.01 ng/mL (<0.04)
[2019-03-27 12:24] LABS: Albumin/Globulin Ratio 0.9 (1-3); BUN/Creatinine Ratio 9.4 (8-20); C Reactive Protein 47.6 mg/L (<8.01); EGFR African American 191.9 (>60); EGFR Non-African American 158.6 (>60); Globulin 3.2 g/dL (2-4); Total Protein 6.2 g/dL (6.4-8.9)
[2019-03-27] MEDS ORDERED: HYDROcodone/ACETAMIN 5-325 MG* 1 TAB PO ONE (16:01)
[2019-03-27] MEDS ORDERED: Lidocaine 1% MPF ** 5 ML VIAL ONE (16:46)
[2019-03-27] MEDS ORDERED: Lidocaine 1% MPF ** 5 ML VIAL INJ ONE (17:00)
[2019-03-27] MEDS ORDERED: Lidocaine 2% MPF* 2 ML VIAL ONE ×2 (17:13)
--- NOTE | 2019-03-27 18:00 | OP ---
Operative Report - Blank - Operative Report Date of Operation: 03/27/19 Note: Procedure: Paracentesis Physician(s): Dr. Wilhelm., Dr Walter Indication:ascites Anesthesia: 1% Lidocaine Ultrasound guidance was used to locate and yaniv an ascitic pocket Percussion and shifting dullness techniques were used to identify an ascitic pocket A time-out was completed, verifying correct patient, procedure, site, positioning, and implant(s) or special equipment if applicable. Patient was positioned, prepped, and draped in the usual sterile fashion. 1% Lidocaine was used to anesthetize the area. A standard paracentesis kit needle was introduced into the peritoneal space and 100% ml clear yellow was removed. No further fluid could be aspirated. Patient also started to become uncomfortable so procedure stopped despite further Lidocaine. Further studies to be sent for cell counts, gram stain, bacterial culture, and albumin levels by Dr. Ozuna in the ED. D/W Dr. Ozuna in the ED. Blood loss: None
[2019-03-27] MEDS ORDERED: Albuterol/Ipratropium NEB.SOL* Albuterol 2.5 MG/Ipratropium 0.5 MG 3 ML INH ONE (18:22)
[2019-03-27 18:42] LABS: Body Fluid Source Peritonial Fluid
[2019-03-27 19:57] LABS: Body Fluid Mono 5 %; Body Fluid Other Cells 83
[2019-03-27] MEDS ORDERED: Ondansetron INJ* 2 MG/ML VIAL IV PRN (20:19)
[2019-03-27] MEDS ORDERED: Acetaminophen TAB* 325 MG PO PRN (20:19)
[2019-03-27] MEDS ORDERED: Al Hydrox/Mg Hydrox/Simet LIQ* 30 ML UDC PO PRN (20:19)
[2019-03-27] MEDS ORDERED: Furosemide IV* 10 MG/ML VIAL (40 MG) IV ONE (20:34)
[2019-03-27] MEDS ORDERED: Albuterol HFA INHALER* 8 gm MDI INH PRN (20:35)
[2019-03-27] MEDS ORDERED: hydrOXYzine HCL TAB* 25 MG PO PRN (20:35)
[2019-03-27] MEDS ORDERED: LORazepam INJ* 2 MG/ML 1 ML VIAL IV PUSH SCH (21:00)
[2019-03-27] MEDS ORDERED: Dextrose 50% VIAL 50 ml IV PUSH PRN (21:05)
[2019-03-27] MEDS ORDERED: Lorazepam PYXIS KEY PRN (21:15)
[2019-03-27] MEDS: HYDROcodone/ACETAMIN 5-325 MG* 1 TAB PO PRN (21:37)
[2019-03-27] MEDS: Enoxaparin(*) 40 MG/0.4 ML SYR SUBCUT SCH (22:41)
[2019-03-27] MEDS: Pantoprazole TAB * 40 MG TAB PO SCH (22:43)
[2019-03-27] MEDS: traZODone TAB* 100 MG PO SCH (22:43)
[2019-03-27] MEDS: Montelukast Sodium TAB* 10 MG PO SCH (22:43)
[2019-03-27] MEDS: Metoprolol Tartrate TAB* 25 MG PO SCH (22:43)
[2019-03-27] MEDS: guaiFENesin ER TAB 600 MG PO SCH (22:43)
[2019-03-27] MEDS: predniSONE TAB* 50 MG PO SCH (22:43)
[2019-03-28] MEDS: Albuterol/Ipratropium NEB.SOL* Albuterol 2.5 MG/Ipratropium 0.5 MG 3 ML INH SCH ×2 (00:01→03:27)
[2019-03-28] MEDS: Fluticasone-Salmeterol 500-50* DISKUS INH SCH ×2 (00:01→07:48)
--- NOTE | 2019-03-28 01:32 | HP ---
CC: CORY Torres, [place] * HISTORY AND PHYSICAL: DATE OF ADMISSION: 03/27/19 PRIMARY CARE PROVIDER: CORY Torres at [place]. ATTENDING PHYSICIAN WHILE IN THE HOSPITAL: Dr. Ashish Georges * (dictated by CORY Florez). CHIEF COMPLAINT: Shortness of breath and orthopnea. HISTORY OF PRESENT ILLNESS: Freeman Coughlin is a 58-year-old male with a history of alcohol use disorder, COPD, diabetes, chronic back pain, coronary artery disease, status post stent in 2017, who presents to the emergency department today due to multiple problems including shortness of breath and abdominal distention. The patient over the last 2 to 3 weeks has had progressive worsening of orthopnea, shortness of breath with exertion, and abdominal distention. His who is a retired nurse tells me that she has been having to help him more and more with transitioning into the bathroom and he is getting very easily short of breath and requiring albuterol inhaler. Additionally, he has gained 30 pounds in the last 6 weeks. His lower extremity edema has additionally been worsening over this 2-week period extending into his thighs per his . The patient additionally has been feeling fatigued and decreased appetite for the last month. He typically has nausea after meals related to acid reflux but it has been worsening for several months. Additionally, for the last 3 to 4 weeks, the patient has been having up to 4 episodes of diarrhea per day. The patient denies fever, chills, or chest pain. Nausea at the time of evaluation. No vomiting, hematochezia, melena, dysuria, or hematuria. The patient's CO in 2017 had presenting symptoms of bilateral severe elbow pain. The patient does not recall having any similar symptoms to this within the last several weeks nor chest pain or sudden onset of shortness of breath. The patient does typically feel short of breath with exertion, though this has been very severe compared to his baseline. Additionally, the patient has a productive cough at baseline and is normally green sputum and this is increasing in frequency a little bit per the patient. EMERGENCY DEPARTMENT COURSE: In the emergency department, the patient had vital signs upon arrival of temperature 98.5 degrees Fahrenheit, pulse 69, respiratory rate 20, oxygen saturation 85% on room air, blood pressure 142/78. He had ascites on CT abdomen and pelvis, and the flying ii instructor Dr. Wilhelm was asked to perform paracentesis. Paracentesis was performed and 100 cc were removed. Please see the operative report by Dr. Wilhelm for further information. PAST MEDICAL HISTORY: 1. Alcohol use disorder. 2. COPD. 3. Hyperlipidemia. 4. Diabetes mellitus type 2. 5. Anxiety. 6. Chronic back pain due to fall in the ED. 7. CO, status post stent placement 2016. 8. Obstructive sleep apnea, has not yet received CPAP due to recent diagnosis and insurance issues. 9. Moderate pulmonary hypertension. 10. GERD. 11. Known right middle lobe pulmonary nodule 2 mm, being followed by Dr. Luther. PAST SURGICAL HISTORY: None. HOME MEDICATIONS: 1. Lasix 20 mg p.o. daily. 2. Multivitamin 1 tab p.o. daily. 3. Yupelri 175 mcg inhaled daily. 4. Trazodone 150 mg p.o. at bedtime. 5. Zoloft 200 mg p.o. daily. 6. Advair 2 puffs inhaled b.i.d. 7. Lipitor 80 mg p.o. daily. 8. Tradjenta 5 mg p.o. daily. 9. Hydroxyzine 25 mg p.o. t.i.d. p.r.n. anxiety. 10. Singulair 10 mg p.o. daily. 11. Hydrocodone/acetaminophen 5/325 mg 1 tab p.o. b.i.d. p.r.n. severe pain. 12. Jardiance 10 mg p.o. daily. 13. Protonix 40 mg p.o. daily. 14. Aspirin 81 mg p.o. daily. 15. Albuterol 2 puffs inhaled q.4 hours p.r.n. shortness of breath/wheezing. 16. Mucinex 600 mg p.o. b.i.d. 17. Metoprolol tartrate 25 mg p.o. daily. ALLERGIES: No known drug allergies. FAMILY HISTORY: Mother of hepatic cancer at age 68. Father at age 76 due to complications related to COPD. SOCIAL HISTORY: The patient lives with his . They have children. He is a former field crop farmer and adler. He denies illicit drug use. He has a 45 - year history of smoking 2 packs per day. He has more recently been smoking 13 cigarettes per day. Additionally, the patient has had severe alcohol use for the last 20 to 30 years. More recently, he has been drinking 15 beers per day. His Silver Coughlin is his medical decision maker should he need one. Her phone number is [phone]. REVIEW OF SYSTEMS: An 11-point review of systems was completed and all pertinent positives and negatives are above in the HPI. All other systems are negative. PHYSICAL EXAMINATION GENERAL: An obese, elderly white male, lying upright in hospital bed, appearing comfortable, in no acute distress, appears older than stated age. is at bedside. HEENT: Head: Normocephalic, atraumatic. Eyes: PERRL. Sclerae anicteric. ENT: Mucous membranes moist. NECK: Supple. LUNGS: Expiratory wheezing throughout. Diminished breath sounds. Chest expansion is symmetrical on respiration. CARDIO: Regular rate and rhythm without murmurs, rubs, or gallops appreciated. ABDOMEN: Significantly round abdomen in the setting of obesity. Difficult to discern if there is hepatosplenomegaly on palpation. Normoactive bowel sounds x4 quadrants. Erythema to the lower quadrants of the abdomen with trace pitting edema. EXTREMITIES: +2 pitting edema up to the bilateral knees and lower extremities. Otherwise, no cyanosis or clubbing. NEURO: The patient is alert and oriented x3. No focal deficits. Strength is 5 /5 in all extremities. Minimally tremulous. DIAGNOSTIC STUDIES/LAB DATA: White blood cell count 8.7, hemoglobin 16, hematocrit 46, platelet count 126. Sodium 138, potassium 4.2, chloride 102, carbon dioxide 34, anion gap 2, BUN 5, creatinine 0.53, glucose 109, calcium 8.4. Total bili 1, AST 63, ALT 27, alk phos 272. CRP 47.6. Troponin 0.01. INR 1.17. Peritoneal fluid volume 60 cc, fluid color yellow, fluid appearance cloudy. Fluid white blood cell count 463, neutrophil 26%, rbc's 1807, other cells 83 total. Chest x-ray, per radiologist's impression: No acute cardiopulmonary process by radiograph. Per my read, it does appear there are small bilateral pleural effusions, and there is no previous chest x-ray for comparison. EKG: Normal sinus rhythm, 68 beats per minute, no ST elevation or depression. There is T- wave inversion in V1 which is consistent with previous EKG. CT abdomen and pelvis, impression: Splenomegaly with nodular appearing liver. Possibly cirrhosis should be considered. There is moderate degree of ascites noted. No abnormal dilation of bowel was noted. ASSESSMENT AND PLAN: Freeman Coughlin is a 58-year-old white male with past medical history significant for diabetes, alcohol use disorder, chronic obstructive pulmonary disease, anxiety, coronary artery disease, and obstructive sleep apnea , who presents to the emergency department due to worsening orthopnea and shortness of breath on exertion in addition to the abdominal distention. The patient will be admitted inpatient for: 1. Acute respiratory failure with hypoxia. There are likely multiple components contributing to this. It does appear the patient has a chronic obstructive pulmonary disease exacerbation as he has significant wheezing throughout. I will start him on prednisone and scheduled DuoNebs. Otherwise, I will continue his home Advair and Yupelri. Additionally, I do have concerns that the patient is having heart failure. His last echocardiogram in October of this year was normal. However with all of the symptomatology of his lower extremity edema, his orthopnea, and his shortness of breath with exertion worsening, I do have concern that the patient possibly had a silent myocardial infarction with the onset of all of these symptoms that lead to heart failure. As I mentioned, the patient has no recollection of any symptomatology that would have suggested this; however, given that he has diabetes and he already had atypical presentation of a heart attack in the past, it is very likely for him to have risk of a silent myocardial infarction. His troponin is negative. His EKG overall appears unchanged from his prior. I will order an echocardiogram for tomorrow. Additionally, I will start IV Lasix daily to help with the lower extremity edema. The patient is currently on 2 L of oxygen and normally has no oxygen requirement at home and we will attempt to titrate this as there is medical improvement. 2. Abdominal distention. In addition to the ascites that was seen on CT, the patient was also having symptomatic abdominal distention. It does appear that the patient does have some dependent edema as he has bilateral lower quadrant erythema and pitting edema. I believe that this is again possibly related to heart failure. The patient had a paracentesis and only 100 cc of fluid was removed. The patient has signs of cirrhosis on the CT and this is consistent with his significant alcohol use. Please see further below. The paracentesis fluid culture and Gram stain is still pending as well as the albumin. There were other cells noted, which again raises concern given his family history of hepatic cancer. 3. Alcohol use disorder. The patient and I discussed alcohol cessation. His AST/ALT ratio is elevated 2:1, which is consistent with his significant alcohol use. He has a MELD score of 8 indicating 1.9% estimated 3-month mortality. The patient will be started on a WAM protocol for his expected alcohol withdrawal while he is in the hospital not drinking alcohol. As the CT indicated cirrhosis, it does not appear to be necessary to have an abdominal ultrasound at this time, though this could be considered if there are any further changes. We will continue to follow his LFTs. His alk phos is elevated as well. Given the patient's family history of hepatic cancer, this should be continued to be monitored. 4. Diarrhea. It is unclear at this time why the patient is having ongoing diarrhea. The CT abdomen and pelvis did not indicate any colitis. The patient maintains good BUN/creatinine ratio and does not appear to be dehydrated. Despite this, I have ordered a stool white blood cell count, stool culture, as well as C. diff. The patient does not have C. diff risk factors at this time. I will not order Yupelri at this time until the stool cultures are resulted. The patient is afebrile and without leukocytosis indicating a low likelihood for infectious colitis. The patient has not recently traveled and is not having bloody stools. It is possible this is due to his alcohol use. 5. Diabetes. I will order fingersticks and lispro sliding scale. I am holding the patient's home p.o. medications while he is in the hospital. 6. Fatigue. The patient has had ongoing fatigue for about a month. Again, this may be possibly related to my suspicion for heart failure possibly related to silent myocardial infarction. He does not have an anemia to explain this. His also tells me that he has been more weak, and I will order a physical therapy consultation as well as TSH. 7. Tobacco use. Patient declines nicotine patch. 8. FEN: The patient will have heart healthy diet with no caffeine. 9. Code status: The patient is full code. 10. DVT prophylaxis: The patient has a DVT risk score of 2. I will start Lovenox 30 mg subcutaneous. TIME SPENT: Approximately 55 minutes was spent on this admission, approximately half this time was spent at bedside. This case has been reviewed by my attending Dr. Ashish Georges, and he agrees with this plan of care. CORY FLOREZ [id number]/[facility] #: [id number] JESSICA
[2019-03-28 06:01] LABS: ABS Lymphocytes 0.6 10^3/ul (1.0-4.8); ABS Monocytes 0.2 10^3/ul (0-0.8); ABS Neutrophils 6.6 10^3/ul (1.5-7.7); Eosinophil % 0.1 %; Hematocrit 46 % (42-52); Hemoglobin 15.4 g/dL (14.0-18.0); Lymphocyte % 7.5 %; Mean Corpuscular HGB Conc 34 g/dL (31-36); Mean Corpuscular Hemoglobin 33 pg (27-31); Mean Corpuscular Volume 98 fL (80-94); Mean Platelet Volume 9.5 fL (7.4-10.4); Nucleated Red Blood Cells % 0.1; Platelet Count 114 10^3/uL (150-450); Red Blood Count 4.68 10^6 /uL (4.18-5.48); Red Cell Distribution Width 18 % (10-15); White Blood Count 7.4 10^3/uL (3.5-10.8)
[2019-03-28 06:22] LABS: Albumin 2.9 g/dL (3.2-5.2); Albumin/Globulin Ratio 0.9 (1-3); BUN/Creatinine Ratio 11.3 (8-20); Calcium 8.5 mg/dL (8.6-10.3); EGFR African American 191.9 (>60); EGFR Non-African American 158.6 (>60); Globulin 3.3 g/dL (2-4); Potassium 4.2 mmol/L (3.5-5.0); Total Bilirubin 1.3 mg/dL (0.2-1.0); Total Protein 6.2 g/dL (6.4-8.9)
[2019-03-28 06:41] LABS: TSH (Thyroid Stimulating Horm) 2.76 mcIU/mL (0.34-5.60)
[2019-03-28] MEDS: Sertraline* 100 MG TAB PO SCH (08:19)
[2019-03-28] MEDS: Thiamine TAB* 100 MG TAB PO SCH (08:19)
[2019-03-28] MEDS: guaiFENesin ER TAB 600 MG PO SCH ×2 (08:19→20:34)
[2019-03-28] MEDS: Folic Acid TAB* 1 MG PO SCH (08:20)
[2019-03-28] MEDS: Atorvastatin* 80 MG TAB PO SCH (08:20)
[2019-03-28] MEDS: Aspirin 81 mg CHEW TAB* 81 MG TAB.CHEW PO SCH (08:21)
[2019-03-28] MEDS: predniSONE TAB* 50 MG PO SCH (08:21)
[2019-03-28] MEDS: Multivitamins/Minerals TAB PO SCH (08:21)
[2019-03-28] MEDS: Insulin LISPRO* 1 UNITS UNIT SUBCUT SCH ×3 (08:21→17:11)
[2019-03-28] MEDS: Metoprolol Tartrate TAB* 25 MG PO SCH ×2 (08:22→20:34)
[2019-03-28] MEDS: Mometasone/Formoter 200/5 MDI INH SCH ×2 (08:41→21:36)
[2019-03-28] MEDS ORDERED: Furosemide IV* 10 MG/ML VIAL (40 MG) IV SCH (09:00)
[2019-03-28] MEDS ORDERED: REVEFENACIN 175 MCG IH SCH (09:00)
--- NOTE | 2019-03-28 09:13 | PN ---
Subjective Date of Service: 03/28/19 Interval History: HD 1 on 03/28 58 M with Alcohol use disorder,COPD, HYperlipidemia, DM2 presented with worsening of SOB and abdominal distension for 3 weeks. Found to have moderate ascites with nodular liver and splenomegaly on CT. Echo shows EF of 60-65%. Still has some SOB; feels his leg swelling as improved alot. he gives hx of loose stool for 1 year; once a dy. No BM after admission Objective Active Medications: Acetaminophen (Tylenol Tab*) 650 mg PO Q4H PRN PRN Reason: MILD PAIN or TEMP > 100.4 Hydrocodone Bitart/Acetaminophen ([place] 5-325 Tab*) 1 tab PO BID PRN PRN Reason: PAIN - SEVERE Last Admin: 03/27/19 21:37 Dose: 1 tab Al Hydrox/Mg Hydrox/Simethicone (Maalox Plus*) 30 ml PO Q6H PRN PRN Reason: INDIGESTION Albuterol (Ventolin Hfa Inhaler*) 2 puff INH Q4H PRN PRN Reason: WHEEZING Albuterol/Ipratropium (Duoneb (Albuterol 2.5 Mg/Ipratropium 0.5 Mg)) 1 neb INH Q4H PRN PRN Reason: SOB/WHEEZING Aspirin (Aspirin 81 Mg Chew Tab*) 81 mg PO DAILY [facility] Last Admin: 03/28/19 08:21 Dose: 81 mg Atorvastatin Calcium (Lipitor*) 80 mg PO DAILY [facility] Last Admin: 03/28/19 08:20 Dose: 80 mg Dextrose (Dextrose 50% Vial 50 Ml*) 25 ml IV PUSH .FOR FS < 60 - SS PRN PRN Reason: FS < 60 Enoxaparin Sodium (Lovenox(*)) 40 mg SUBCUT Q24H [facility] Last Admin: 03/27/19 22:41 Dose: 40 mg Folic Acid (Folvite Tab*) 1 mg PO DAILY [facility] Last Admin: 03/28/19 08:20 Dose: 1 mg Furosemide (Lasix Iv*) 40 mg IV DAILY [facility] Last Admin: 03/28/19 08:22 Dose: 40 mg Guaifenesin (Mucinex*) 600 mg PO BID [facility] Last Admin: 03/28/19 08:19 Dose: 600 mg Hydroxyzine HCl (Atarax Tab*) 25 mg PO TID PRN PRN Reason: ANXIETY Insulin Human Lispro (Humalog*) 0 units SUBCUT AC SANDY; Protocol Last Admin: 03/28/19 08:21 Dose: 2 unit Lorazepam (Ativan Inj*) 0 - 3 mg IV PUSH .PER [facility] PROTOCOL [facility]; Protocol Metoprolol Tartrate (Lopressor Tab*) 25 mg PO BID [facility] Last Admin: 03/28/19 08:22 Dose: 25 mg Miscellaneous (Ativan Pyxis Wood) 1 ea N/A .PYXIS WOOD PRN PRN Reason: PER PROTOCOL Mometasone Furoate/Formoterol Fumar (Dulera 200/5 Mdi*) 2 puff INH BID [facility] Last Admin: 03/28/19 08:41 Dose: Not Given Montelukast Sodium (Singulair Tab*) 10 mg PO BEDTIME [facility] Last Admin: 03/27/19 22:43 Dose: 10 mg Multivitamins/Minerals (Theragran/Minerals Tab*) 1 tab PO DAILY [facility] Last Admin: 03/28/19 08:21 Dose: 1 tab Non-Formulary Medication (Revefenacin [Yupelri]) 175 mcg IH DAILY [facility] Ondansetron HCl (Zofran Inj*) 4 mg IV Q4H PRN PRN Reason: NAUSEA/VOMITING Pantoprazole Sodium (Protonix Tab*) 40 mg PO BEDTIME [facility] Last Admin: 03/27/19 22:43 Dose: 40 mg Prednisone (Deltasone Tab*) 50 mg PO DAILY [facility] Last Admin: 03/28/19 08:21 Dose: 50 mg Sertraline HCl (Zoloft*) 200 mg PO DAILY [facility] Last Admin: 03/28/19 08:19 Dose: 200 mg Thiamine HCl (Vitamin B-1 Tab*) 100 mg PO DAILY [facility] Last Admin: 03/28/19 08:19 Dose: 100 mg Trazodone HCl (Desyrel Tab*) 150 mg PO BEDTIME [facility] Last Admin: 03/27/19 22:43 Dose: 150 mg Vital Signs - 8 hr 03/28/19 03/28/19 03/28/19 02:00 02:37 04:00 Temperature 97.6 F 97.6 F Pulse Rate 61 67 Respiratory 18 18 18 Rate Blood Pressure 112/70 112/75 (mmHg) O2 Sat by Pulse 91 91 Oximetry 09/03/28/19 03/28/19 04:37 06:00 06:10 Temperature 98.1 F Pulse Rate 65 Respiratory 18 20 20 Rate Blood Pressure 109/68 (mmHg) O2 Sat by Pulse 90 Oximetry 03/28/19 03/28/19 03/28/19 07:48 07:56 08:05 Temperature 98.7 F Pulse Rate 62 63 Respiratory 18 20 20 Rate Blood Pressure 110/64 (mmHg) O2 Sat by Pulse 92 90 Oximetry Oxygen Devices in Use Now: Nasal Cannula Exam: Patietn is lying on a bed with nasal canula. HEENT: Normocephalic and atraumatic; sclerae anicteric Lungs: Diffuse wheeze throughout Heart: S1/S2 heard with no murmur Abdomen: Distended and nontender. No hepatosplenogaly appreciated. Normal BS Extremities: Pitting edema on b/l LE. Neuro: Alert and oriented. moving all four extremities Result Diagrams: 03/28/19 05:44 03/28/19 05:44 Assess/Plan/Problems-Billing Assessment: 58 M with Alcohol use disorder,COPD, HYperlipidemia, DM2, CAD(s/p stent) presented with worsening of SOB and abdominal distension for 3 weeks. Found to have moderate ascites with nodular liver and splenomegaly on CT. Echo shows EF of 60-65%. - Patient Problems (1) COPD exacerbation Current Visit: Yes Status: Acute Code(s): J44.1 - CHRONIC OBSTRUCTIVE PULMONARY DISEASE W (ACUTE) EXACERBATION SNOMED Code(s): 871443250 Comment: patient is having worsening SOB with diffuse wheezes. He is on 3l of o2. On GARCIA, LAMA, LABA and oral prednisone (2) Cirrhosis of liver Current Visit: Yes Status: Acute Comment: alcohol induced drinks 15 beers a day for last 5 years buthe has been drinking 5 beers for last20 years has ascites; decompensated; MELD score of 9. no evidence of SBP Diagnostic tap done Plan is to do therapeutic tap tomorrow (3) Alcohol use disorder Current Visit: Yes Status: Acute Code(s): FJN4040 - SNOMED Code(s): 2725702 Comment: drinks 15 beer a day. ast is 2 times higher than alt On Wam protocol (4) Diabetes Current Visit: Yes Status: Acute Code(s): E11.9 - TYPE 2 DIABETES MELLITUS WITHOUT COMPLICATIONS SNOMED Code(s): 05305587 Comment: on insulin sliding scale (5) Coronary artery disease Current Visit: Yes Status: Acute Code(s): I25.10 - ATHSCL HEART DISEASE OF [place] CORONARY ARTERY W/O ANG PCTRS SNOMED Code(s): 25422890 Comment: hx of [place]; s/p 2 stent ECho 0n 03/28 shows EF of 60-65% with normal diastolic function ON aspirin, atorvastatin,metoprolol (6) DVT prophylaxis Current Visit: Yes Status: Acute Code(s): Z29.9 - ENCOUNTER FOR PROPHYLACTIC MEASURES, UNSPECIFIED SNOMED Code(s): 331557251 Comment: on lovenox sc (7) Full code status Current Visit: Yes Status: Acute Code(s): Z78.9 - OTHER SPECIFIED HEALTH STATUS SNOMED Code(s): 138769746 Status and Disposition: Inpatient Attending: Indu Ornelas Attestation Documenting Resident: Donna Sanderson Supervising Physician: Indu Ornelas Attestation: This service has been performed in part by a resident under the direction of a teaching physician.I, Indu Ornelas, performed the service, or was physically present during the critical, or wood portions of the service, furnished by the resident. I participated in the management of the patient.
[2019-03-28] MEDS ORDERED: Perflutren Lipid Microsphere* 3 ML VIAL ONE (10:50)
[2019-03-28] MEDS: HYDROcodone/ACETAMIN 5-325 MG* 1 TAB PO PRN ×2 (13:06→20:33)
--- NOTE | 2019-03-28 15:58 | ECHO ---
*[facility]* [place] [address] Fax #: [phone] Transthoracic Echocardiogram Patient: Freeman Coughlin : 1960 Study Date: 03/28/2019 Age: 58 Gender: M HR: 61 bpm Height: 71 in /180.3 cm BSA: 2.47 m^2 Weight: 289.4 lb /131.5 kg BMI: 40.4 kg/m^2 *Metal Room Dental Technician: * Kaylin Oneil RDCS RN *Referring Physician: * O'Gabriela Booker *Reading Physician: * Jitendra Luu MD Indications: SOB. History: Coronary artery disease. [place]. Chronic obstructive pulmonary disease. Obstructive sleep apnea. Moderate pulmonary hypertension. ETOH use. Risk factors: Current tobacco use. Diabetes mellitus. Obese. Dyslipidemia. Conclusions Summary: - Left ventricle: Systolic function is normal. The estimated ejection fraction is 60-65%. Wall motion is normal; there are no regional wall motion abnormalities. - Right ventricle: Systolic function is normal. - Mitral valve: There is trace regurgitation. - Aortic valve: There is trace regurgitation. - Tricuspid valve: There is trace regurgitation. - Pulmonic valve: There is no significant regurgitation. - Pulmonary arteries: Systolic pressure can not be accurately estimated. - Compared to study of 10/12/18, there is little change. Est PASP could not be compared. Study data: Transthoracic echocardiogram. Procedure: Transthoracic echocardiography was performed. Image quality was fair. The study was technically limited due to body habitus and COPD. Intravenous Definity 3 ml was administered to enhance imaging. Complete 2D, spectral Doppler, and color flow Doppler. Location: Bedside. Patient status: Inpatient. Patient room number: 433. Rhythm: Normal sinus rhythm. Findings Left ventricle: The cavity size is normal. Wall thickness is normal. Systolic function is normal. The estimated ejection fraction is 60-65%. Wall motion is normal; there are no regional wall motion abnormalities. There is no consistent Doppler evidence of clinically significant diastolic dysfunction. Right ventricle: The cavity size is mildly dilated. Systolic function is normal. Left atrium: The atrium is normal in size. Right atrium: The atrium is normal in size. Mitral valve: The leaflets are mildly thickened. There is no evidence of stenosis. There is trace regurgitation. Aortic valve: Not well visualized. The leaflets are mildly thickened. There is no evidence of stenosis. There is trace regurgitation. Tricuspid valve: The valve is structurally normal. There is no evidence of stenosis. There is trace regurgitation. Pulmonic valve: Not well visualized. There is no evidence of stenosis. There is no significant regurgitation. Aorta: Aortic root: The aortic root is not dilated. Ascending aorta: The ascending aorta is not dilated. Aortic arch: The aortic arch is not visualized. Pericardium: A prominent pericardial fat pad is present. There is no significant pericardial effusion. Pulmonary arteries: Systolic pressure can not be accurately estimated. Systemic veins: Inferior vena cava: Not visualized. Measurements Left ventricle Value Ref Right atrium Value Ref ELBA, LAX 5.3 cm 4.2 - 5.8 ML dim, ES, A4C (H) 4.6 cm 2.6 - 4.4 ESD, LAX 4.0 cm 2.5 - 4.0 SI dim, ES, A4C (H) 5.9 cm 3.4 - 5.3 FS, LAX (L) 20 % 25 - 43 PW, ED 0.8 cm 0.6 - 1.0 Aortic valve Value Ref IVS/PW, ED 1.24 Camilla diam, ED 2.3 cm --------- E', lat camilla, TDI 11.6 cm/sec >=10.0 Peak v, S 1.9 m/sec --- ------ E/e', lat camilla, 6 VTI, S 38.9 cm ------ --- TDI Mean grad, S 8.0 mm Hg --------- E', med camilla, TDI 14.9 cm/sec >=7.0 Peak grad, S 14.0 mm Hg --- ------ E/e', med camilla, 5 LVOT/AV, VTI ratio 0.7 ------ --- TDI E', avg, TDI 13.3 cm/sec Mitral valve Value Ref E/e', avg, TDI 5 <=14 Peak E 0.73 m/sec --- ------ Peak A 0.95 m/sec --------- LVOT Value Ref Decel time 292 ms --------- Peak jessie, S 1.35 m/sec Peak grad, D 2.1 mm Hg --------- VTI, S 27.3 cm Peak E/A ratio 0.8 --------- Peak grad, S 7 mm Hg Mean grad, S 4 mm Hg Pulmonic valve Value Ref Peak v, S 1.18 m/sec --------- Ventricular septum Value Ref Peak grad, S 6.0 mm Hg --------- IVS, ED 1.0 cm 0.6 - 1.0 Aortic root Value Ref Right ventricle Value Ref Root diam 3.3 cm <4.5 ELBA, LAX 3.9 cm ELBA minor ax, (H) 4.1 cm 1.9 - 3.5 Ascending aorta Value Ref A4C mid AAo AP diam, S 3.3 cm --------- Left atrium Value Ref AP dim, ES (H) 4.20 cm 3.00 - 4.00 ML dim, A4C 4.1 cm SI dim, A4C 6.1 cm Vol/bsa, ES, 1-p 22 ml/m^2 12 - 37 A4C Vol/bsa, ES, A/L 27 ml/m^2 16 - 34 Legend: (L) and (H) yaniv values outside specified reference range. Prepared and electronically signed by Jitendra Luu MD 03/28/2019 15:57
[2019-03-28] MEDS: Albuterol/Ipratropium NEB.SOL* Albuterol 2.5 MG/Ipratropium 0.5 MG 3 ML INH PRN (16:29)
[2019-03-28] MEDS: Montelukast Sodium TAB* 10 MG PO SCH (20:33)
[2019-03-28] MEDS: traZODone TAB* 100 MG PO SCH (20:33)
[2019-03-28] MEDS: Pantoprazole TAB * 40 MG TAB PO SCH (20:33)
[2019-03-28] MEDS: Enoxaparin(*) 40 MG/0.4 ML SYR SUBCUT SCH (20:36)
[2019-03-29 04:48] LABS: Hematocrit 42 % (42-52); Mean Corpuscular HGB Conc 33 g/dL (31-36); Mean Corpuscular Hemoglobin 33 pg (27-31); Mean Corpuscular Volume 99 fL (80-94); Mean Platelet Volume 9.4 fL (7.4-10.4); Platelet Count 103 10^3/uL (150-450); Red Blood Count 4.26 10^6 /uL (4.18-5.48); Red Cell Distribution Width 19 % (10-15); White Blood Count 7.6 10^3/uL (3.5-10.8)
[2019-03-29 04:51] LABS: INR 1.18 (0.82-1.09)
[2019-03-29 05:07] LABS: Albumin 2.6 g/dL (3.2-5.2); Albumin/Globulin Ratio 0.9 (1-3); BUN/Creatinine Ratio 17.3 (8-20); Calcium 8.7 mg/dL (8.6-10.3); EGFR African American 196.2 (>60); EGFR Non-African American 162.1 (>60); HDL Cholesterol 30.2 mg/dL; Potassium 3.9 mmol/L (3.5-5.0); Total Bilirubin 0.8 mg/dL (0.2-1.0); Total Protein 5.6 g/dL (6.4-8.9)
--- NOTE | 2019-03-29 07:05 | PN ---
Subjective Date of Service: 03/29/19 Interval History: HD 2 on 03/29 58 M with Alcohol use disorder,COPD, HYperlipidemia, DM2 presented with worsening of SOB and abdominal distension for 3 weeks. Found to have moderate ascites with nodular liver and splenomegaly on CT. Echo shows EF of 60-65%. No acute overnight events VS stable; requiring 3l of o2 feels sx has subsided but still has difficulty in breathing No BM since hospital admission Objective Active Medications: Acetaminophen (Tylenol Tab*) 650 mg PO Q4H PRN PRN Reason: MILD PAIN or TEMP > 100.4 Hydrocodone Bitart/Acetaminophen ([place] 5-325 Tab*) 1 tab PO BID PRN PRN Reason: PAIN - SEVERE Last Admin: 03/28/19 20:33 Dose: 1 tab Al Hydrox/Mg Hydrox/Simethicone (Maalox Plus*) 30 ml PO Q6H PRN PRN Reason: INDIGESTION Albuterol (Ventolin Hfa Inhaler*) 2 puff INH Q4H PRN PRN Reason: WHEEZING Last Admin: 03/28/19 21:35 Dose: 2 puff Albuterol/Ipratropium (Duoneb (Albuterol 2.5 Mg/Ipratropium 0.5 Mg)) 1 neb INH Q4H PRN PRN Reason: SOB/WHEEZING Last Admin: 03/28/19 16:29 Dose: 1 neb Aspirin (Aspirin 81 Mg Chew Tab*) 81 mg PO DAILY [facility] Last Admin: 03/28/19 08:21 Dose: 81 mg Atorvastatin Calcium (Lipitor*) 80 mg PO DAILY [facility] Last Admin: 03/28/19 08:20 Dose: 80 mg Dextrose (Dextrose 50% Vial 50 Ml*) 25 ml IV PUSH .FOR FS < 60 - SS PRN PRN Reason: FS < 60 Enoxaparin Sodium (Lovenox(*)) 40 mg SUBCUT Q24H [facility] Last Admin: 03/28/19 20:36 Dose: 40 mg Folic Acid (Folvite Tab*) 1 mg PO DAILY [facility] Last Admin: 03/28/19 08:20 Dose: 1 mg Furosemide (Lasix Tab*) 40 mg PO DAILY [facility] Guaifenesin (Mucinex*) 600 mg PO BID [facility] Last Admin: 03/28/19 20:34 Dose: 600 mg Hydroxyzine HCl (Atarax Tab*) 25 mg PO TID PRN PRN Reason: ANXIETY Insulin Human Lispro (Humalog*) 0 units SUBCUT AC [facility]; Protocol Last Admin: 03/28/19 17:11 Dose: 2 unit Lorazepam (Ativan Inj*) 0 - 3 mg IV PUSH .PER [facility] PROTOCOL [facility]; Protocol Metoprolol Tartrate (Lopressor Tab*) 25 mg PO BID [facility] Last Admin: 03/28/19 20:34 Dose: 25 mg Miscellaneous (Ativan Pyxis Wood) 1 ea N/A .PYXIS WOOD PRN PRN Reason: PER PROTOCOL Mometasone Furoate/Formoterol Fumar (Dulera 200/5 Mdi*) 2 puff INH BID [facility] Last Admin: 03/28/19 21:36 Dose: 2 puff Montelukast Sodium (Singulair Tab*) 10 mg PO BEDTIME [facility] Last Admin: 03/28/19 20:33 Dose: 10 mg Multivitamins/Minerals (Theragran/Minerals Tab*) 1 tab PO DAILY [facility] Last Admin: 03/28/19 08:21 Dose: 1 tab (Revefenacin [ (Yupelri] 175 Mcg)) 175 mcg IH DAILY [facility] Ondansetron HCl (Zofran Inj*) 4 mg IV Q4H PRN PRN Reason: NAUSEA/VOMITING Pantoprazole Sodium (Protonix Tab*) 40 mg PO BEDTIME [facility] Last Admin: 03/28/19 20:33 Dose: 40 mg Prednisone (Deltasone Tab*) 50 mg PO DAILY [facility] Last Admin: 03/28/19 08:21 Dose: 50 mg Sertraline HCl (Zoloft*) 200 mg PO DAILY [facility] Last Admin: 03/28/19 08:19 Dose: 200 mg Thiamine HCl (Vitamin B-1 Tab*) 100 mg PO DAILY [facility] Last Admin: 03/28/19 08:19 Dose: 100 mg Trazodone HCl (Desyrel Tab*) 150 mg PO BEDTIME [facility] Last Admin: 03/28/19 20:33 Dose: 150 mg Vital Signs - 8 hr 03/29/19 03/29/19 03/29/19 00:00 02:00 04:00 Temperature 97.9 F 98 F 97.7 F Pulse Rate 66 64 64 Respiratory 18 18 20 Rate Blood Pressure 112/58 113/60 108/65 (mmHg) O2 Sat by Pulse 94 93 94 Oximetry 03/29/19 06:00 Temperature 98.3 F Pulse Rate 61 Respiratory 24 Rate Blood Pressure 112/73 (mmHg) O2 Sat by Pulse 94 Oximetry Oxygen Devices in Use Now: Nasal Cannula Exam: Patietn is lying on a bed with nasal canula. HEENT: Normocephalic and atraumatic; sclerae anicteric Lungs: Diffuse wheeze throughout Heart: S1/S2 heard with no murmur Abdomen: Distended and nontender. Shifting dullness and fluid thrill present. No hepatosplenomegaly appreciated. Normal BS Extremities: Pitting edema on b/l LE. Neuro: Alert and oriented. moving all four extremities Result Diagrams: 03/29/19 04:17 03/29/19 04:14 Assess/Plan/Problems-Billing Assessment: 58 M with Alcohol use disorder,COPD, HYperlipidemia, DM2, CAD(s/p stent) presented with worsening of SOB and abdominal distension for 3 weeks. Found to have moderate ascites with nodular liver and splenomegaly on CT. Echo shows EF of 60-65%. Therapeutic done on 03/29-removed 4.2 L - Patient Problems (1) Cirrhosis of liver Current Visit: Yes Status: Acute Comment: alcohol-induced; Hep B and Hep c ruled out drinks 15 beers a day for last 5 years buthe has been drinking 5 beers for last20 years has ascites; decompensated; MELD score of 9. no evidence of SBP Diagnostic tap on 03/27 Therapeutic tap on 03/29- removed 4.2 L of fluid on furosemide 20 mg and spironolactone 50 mg. limit salt intake (2) COPD exacerbation Current Visit: Yes Status: Acute Code(s): J44.1 - CHRONIC OBSTRUCTIVE PULMONARY DISEASE W (ACUTE) EXACERBATION SNOMED Code(s): 842604042 Comment: patient is having worsening SOB with diffuse wheezes. He is on 3l of o2. On GARCIA, LAMA, LABA and oral prednisone(day 3) (3) Alcohol use disorder Current Visit: Yes Status: Acute Code(s): GKM7210 - SNOMED Code(s): 0956611 Comment: drinks 15 beer a day. ast is 2 times higher than alt On Wam protocol; has not scored (4) Diabetes Current Visit: Yes Status: Acute Code(s): E11.9 - TYPE 2 DIABETES MELLITUS WITHOUT COMPLICATIONS SNOMED Code(s): 44461104 Comment: on insulin sliding scale (5) Coronary artery disease Current Visit: Yes Status: Acute Code(s): I25.10 - ATHSCL HEART DISEASE OF [place] CORONARY ARTERY W/O ANG PCTRS SNOMED Code(s): 67279995 Comment: hx of [place]; s/p 2 stent ECho 0n 03/28 shows EF of 60-65% with normal diastolic function ON aspirin, atorvastatin,metoprolol (6) DVT prophylaxis Current Visit: Yes Status: Acute Code(s): Z29.9 - ENCOUNTER FOR PROPHYLACTIC MEASURES, UNSPECIFIED SNOMED Code(s): 762906017 Comment: on lovenox sc (7) Full code status Current Visit: Yes Status: Acute Code(s): Z78.9 - OTHER SPECIFIED HEALTH STATUS SNOMED Code(s): 781776919 Status and Disposition: Inpatient Attending: Indu Ornelas Attestation Documenting Resident: Donna Sanderson Supervising Physician: Johnson Griggs Attestation: This service has been performed in part by a resident under the direction of a teaching physician.I, Johnson Griggs, performed the service, or was physically present during the critical, or wood portions of the service, furnished by the resident. I participated in the management of the patient.
[2019-03-29] MEDS: Insulin LISPRO* 1 UNITS UNIT SUBCUT SCH ×3 (07:19→17:33)
[2019-03-29] MEDS ORDERED: Furosemide TAB* 40 MG PO SCH (09:00)
[2019-03-29] MEDS: HYDROcodone/ACETAMIN 5-325 MG* 1 TAB PO PRN ×2 (09:24→21:22)
[2019-03-29] MEDS: Mometasone/Formoter 200/5 MDI INH SCH ×2 (10:21→20:12)
--- NOTE | 2019-03-29 10:36 | PN ---
Hospitalist Progress Note Date of Service: 03/29/19 Subjective: Freeman Coughlin is a 58 year old presenting with worsening of SOB and abdominal distension for 3 weeks. He was found to have moderate ascites with nodular liver and splenomegaly on CT. Objective: Exam: Patient is lying on a bed with nasal cannula. HEENT: Normocephalic and atraumatic; sclera anicteric Lungs: Diffuse wheezing throughout Heart: S1/S2 heard with no murmur Abdomen: Distended and nontender. No hepatosplenomegaly appreciated. Normal BS Extremities: No pitting edema on extremities, ecchymosis present on bilateral upper extremities. Neuro: Alert and oriented. Patient is able to move all four extremities and sensation and strength are intact. Chest x-ray: Small bilateral pleural effusions. MCV: 99 H MCH: 33 H RDW: 19 H Plt Count: 103 L INR: 1.18 H Carbon Dioxide: 38 H Creatinine: 0.52 L AST: 43 H ALP: 215 H Total Protein: 5.6 L Albumin: 2.6 L Albumin/Globulin Ration: 0.9 L EKG: Sinus rhythm, 68 beats per minute, no ST elevation or depression. There is T-wave inversion in V1 which is consistent with previous EKG. CT: Splenomegaly with nodular appearing liver. Cirrhosis should be considered. There is moderate degree of ascites noted. No abnormal dilation of bowel was noted. Echocardiogram: The cavity size is normal. Wall thickness is normal. Systolic function is normal. The estimated ejection fraction is 60-65%. No hailey wall motion abnormalities. Compared to study of 10/12/18 little change is noted. Abdominal ultrasound: moderate amount of ascites seen throughout the abdomen and pelvis with the largest pocket in the right lower quadrant. Assessment: 58 year old male with alcohol use disorder, COPD, hyperlipidemia, DM2, CAD (s/p stent) presented with worsening of SOB and abdominal distension for 3 weeks. He was found to have moderate ascites with nodular liver and splenomegaly on CT. Echocardiogram showed an EF of 60-65%. Plan: -COPD exacerbation: pneumonia can be ruled out due to no fever or sweats. COPD exacerbation liked due to smoking. Patient is having SOB with diffuse wheezes. He is on 3L of O2 and GARCIA, LAMA, LABA and oral prednisone. -Cirrhosis of liver: He drinks 15 beers a day for the last 5 years, but had been drinking 5 beers a day for the last 20 years. MELD score of 9. No evidence of SBP and diagnostic tap was done. Therapeutic tap was done today. -Alcohol use disorder: Drinks 15 beers a day and AST/ALT is 2:1. Patient is on [facility] protocol for withdrawal. -Diabetes: Has type 2 diabetes mellitus and is on an insulin sliding scale. -Coronary artery disease: Patient has a history of [place]; s/p 2 stent. Echocardiogram on 03/28 showed EF of 60-65% with normal diastolic function. He is on aspirin, atorvastatin, and metoprolol. -DVT prophylaxis: Lovenox subcutaneous
[2019-03-29] MEDS: Folic Acid TAB* 1 MG PO SCH (10:46)
[2019-03-29] MEDS: Sertraline* 100 MG TAB PO SCH (10:46)
[2019-03-29] MEDS: guaiFENesin ER TAB 600 MG PO SCH (10:46)
[2019-03-29] MEDS: Multivitamins/Minerals TAB PO SCH (10:47)
[2019-03-29] MEDS: Atorvastatin* 80 MG TAB PO SCH (10:47)
[2019-03-29] MEDS: predniSONE TAB* 50 MG PO SCH (10:47)
[2019-03-29] MEDS: Thiamine TAB* 100 MG TAB PO SCH (10:47)
[2019-03-29] MEDS: Metoprolol Tartrate TAB* 25 MG PO SCH ×2 (10:47→21:22)
[2019-03-29] MEDS: Aspirin 81 mg CHEW TAB* 81 MG TAB.CHEW PO SCH (10:47)
[2019-03-29] MEDS: REVEFENACIN 175 MCG IH SCH (11:17)
[2019-03-29 13:44] LABS: Hepatitis B Surface Ab Not Immune (Immune); Hepatitis C Antibody Negative (Negative)
[2019-03-29 14:14] LABS: Fluid Type, Albumin PERITONEAL; Fluid Type, Glucose PERITONEAL
[2019-03-29 14:27] LABS: Fluid Type, Protein, Total PERITONEAL
[2019-03-29] MEDS: Lidocaine PATCH 5%* 1 PATCH TRANSDERM SCH (16:27)
[2019-03-29] MEDS ORDERED: guaiFENesin ER TAB 600 MG PO PRN (18:39)
[2019-03-29] MEDS: traZODone TAB* 100 MG PO SCH (21:22)
[2019-03-29] MEDS: Pantoprazole TAB * 40 MG TAB PO SCH (21:22)
[2019-03-29] MEDS: Montelukast Sodium TAB* 10 MG PO SCH (21:22)
[2019-03-29] MEDS: Lidocaine Patch REMOVE* 1 NOTE MISC SCH (21:27)
[2019-03-30] MEDS: Spironolactone TAB* 25 MG PO SCH (05:19)
[2019-03-30] MEDS: Furosemide TAB* 20 MG PO SCH (05:20)
--- NOTE | 2019-03-30 07:20 | PN ---
Subjective Date of Service: 03/30/19 Interval History: HD 3 on 03/30 58 M with Alcohol use disorder,COPD, HYperlipidemia, DM2 presented with worsening of SOB and abdominal distension for 3 weeks. Found to have moderate ascites with nodular liver and splenomegaly on CT. Echo shows EF of 60-65%. Therapeutic tap done yesterday- 4.2 L fluid removed. Postparacentesis leakage seen at night; colostomy tube placed VS stable; on 2.5 L of O2 No complain at present colostomy tube removed and applied pressure band aid Objective Active Medications: Acetaminophen (Tylenol Tab*) 650 mg PO Q4H PRN PRN Reason: MILD PAIN or TEMP > 100.4 Hydrocodone Bitart/Acetaminophen ([place] 5-325 Tab*) 1 tab PO BID PRN PRN Reason: PAIN - SEVERE Last Admin: 03/29/19 21:22 Dose: 1 tab Al Hydrox/Mg Hydrox/Simethicone (Maalox Plus*) 30 ml PO Q6H PRN PRN Reason: INDIGESTION Albuterol (Ventolin Hfa Inhaler*) 2 puff INH Q4H PRN PRN Reason: WHEEZING Last Admin: 03/28/19 21:35 Dose: 2 puff Albuterol/Ipratropium (Duoneb (Albuterol 2.5 Mg/Ipratropium 0.5 Mg)) 1 neb INH Q4H PRN PRN Reason: SOB/WHEEZING Last Admin: 03/28/19 16:29 Dose: 1 neb Aspirin (Aspirin 81 Mg Chew Tab*) 81 mg PO DAILY [facility] Last Admin: 03/29/19 10:47 Dose: 81 mg Atorvastatin Calcium (Lipitor*) 80 mg PO DAILY [facility] Last Admin: 03/29/19 10:47 Dose: 80 mg Dextrose (Dextrose 50% Vial 50 Ml*) 25 ml IV PUSH .FOR FS < 60 - SS PRN PRN Reason: FS < 60 Folic Acid (Folvite Tab*) 1 mg PO DAILY [facility] Last Admin: 03/29/19 10:46 Dose: 1 mg Furosemide (Lasix Tab*) 20 mg PO 0900 [facility] Last Admin: 03/30/19 05:20 Dose: 20 mg Guaifenesin (Mucinex*) 600 mg PO BID PRN PRN Reason: COUGH Last Admin: 03/29/19 21:22 Dose: 600 mg Hydroxyzine HCl (Atarax Tab*) 25 mg PO TID PRN PRN Reason: ANXIETY Insulin Human Lispro (Humalog*) 0 units SUBCUT AC [facility]; Protocol Last Admin: 03/29/19 17:33 Dose: 3 unit Lidocaine (Lidoderm 5% Patch*) 1 patch TRANSDERM DAILY [facility] Last Admin: 03/29/19 16:27 Dose: 1 patch Lorazepam (Ativan Inj*) 0 - 3 mg IV PUSH .PER [place] PROTOCOL [facility]; Protocol Metoprolol Tartrate (Lopressor Tab*) 25 mg PO BID [facility] Last Admin: 03/29/19 21:22 Dose: 25 mg Miscellaneous (Ativan Pyxis [place]) 1 ea N/A .PYXIS WOOD PRN PRN Reason: PER PROTOCOL Mometasone Furoate/Formoterol Fumar (Dulera 200/5 Mdi*) 2 puff INH BID [facility] Last Admin: 03/29/19 20:12 Dose: 2 puff Montelukast Sodium (Singulair Tab*) 10 mg PO BEDTIME [facility] Last Admin: 03/29/19 21:22 Dose: 10 mg Multivitamins/Minerals (Theragran/Minerals Tab*) 1 tab PO DAILY [facility] Last Admin: 03/29/19 10:47 Dose: 1 tab Pto:(Revefenacin [ (Yupelri] 175 Mcg)) 175 mcg IH DAILY [facility] Last Admin: 03/29/19 11:17 Dose: Not Given Ondansetron HCl (Zofran Inj*) 4 mg IV Q4H PRN PRN Reason: NAUSEA/VOMITING Pantoprazole Sodium (Protonix Tab*) 40 mg PO BEDTIME [facility] Last Admin: 03/29/19 21:22 Dose: 40 mg Pharmacy Profile Note (Lidocaine Patch Remove*) 1 note N/A 2100 [facility] Last Admin: 03/29/19 21:27 Dose: 1 note Prednisone (Deltasone Tab*) 50 mg PO DAILY [facility] Last Admin: 03/29/19 10:47 Dose: 50 mg Sertraline HCl (Zoloft*) 200 mg PO DAILY [facility] Last Admin: 03/29/19 10:46 Dose: 200 mg Spironolactone (Aldactone Tab*) 50 mg PO 0900 [facility] Last Admin: 03/30/19 05:19 Dose: 50 mg Thiamine HCl (Vitamin B-1 Tab*) 100 mg PO DAILY [facility] Last Admin: 03/29/19 10:47 Dose: 100 mg Trazodone HCl (Desyrel Tab*) 150 mg PO BEDTIME [facility] Last Admin: 03/29/19 21:22 Dose: 150 mg Vital Signs - 8 hr 03/29/19 03/30/19 03/30/19 23:30 00:00 02:00 Temperature 97.8 F 97.3 F Pulse Rate 66 63 Respiratory 18 24 24 Rate Blood Pressure 102/68 104/66 (mmHg) O2 Sat by Pulse 94 92 Oximetry 03/30/19 03/30/19 03/30/19 04:00 06:00 06:22 Temperature 98.2 F 97.4 F Pulse Rate 63 60 Respiratory 24 22 Rate Blood Pressure 110/66 108/68 (mmHg) O2 Sat by Pulse 94 97 96 Oximetry Oxygen Devices in Use Now: Nasal Cannula Exam: Patient is siting on a chair with nasal canula HEENT: Normocephalic and atraumatic Lungs: wheezes heard on lower lungs Heart: S1/S2 heard with no murmur Abdomen: Distended and nontender. Normal Bs heard Extremities: Pitting edema on b/l LE Neuro: Alert and oriented. Moving all four extremities Result Diagrams: 03/29/19 04:17 03/30/19 11:25 Assess/Plan/Problems-Billing Assessment: 58 M with Alcohol use disorder,COPD, HYperlipidemia, DM2, CAD(s/p stent) presented with worsening of SOB and abdominal distension for 3 weeks. Found to have moderate ascites with nodular liver and splenomegaly on CT. Echo shows EF of 60-65%. Therapeutic done on 03/29-removed 4.2 L - Patient Problems (1) Cirrhosis of liver Current Visit: Yes Status: Acute Comment: alcohol-induced; Hep B and Hep c ruled out drinks 15 beers a day for last 5 years buthe has been drinking 5 beers for last20 years has ascites; decompensated; MELD score of 9. no evidence of SBP Diagnostic tap on 03/27 Therapeutic tap on 03/29- removed 4.2 L of fluid on furosemide 20 mg and spironolactone 50 mg. limit salt intake (2) COPD exacerbation Current Visit: Yes Status: Acute Code(s): J44.1 - CHRONIC OBSTRUCTIVE PULMONARY DISEASE W (ACUTE) EXACERBATION SNOMED Code(s): 289057575 Comment: patient is having worsening SOB with diffuse wheezes. He is on 3l of o2. On GARCIA, LAMA, LABA and oral prednisone(day 3) (3) Alcohol use disorder Current Visit: Yes Status: Acute Code(s): ROS9301 - SNOMED Code(s): 6506904 Comment: drinks 15 beer a day. ast is 2 times higher than alt (4) Diabetes Current Visit: Yes Status: Acute Code(s): E11.9 - TYPE 2 DIABETES MELLITUS WITHOUT COMPLICATIONS SNOMED Code(s): 22261579 Comment: on insulin sliding scale (5) Coronary artery disease Current Visit: Yes Status: Acute Code(s): I25.10 - ATHSCL HEART DISEASE OF [place] CORONARY ARTERY W/O ANG PCTRS SNOMED Code(s): 16521618 Comment: hx of [place]; s/p 2 stent ECho 0n 03/28 shows EF of 60-65% with normal diastolic function ON aspirin, atorvastatin,metoprolol (6) DVT prophylaxis Current Visit: Yes Status: Acute Code(s): Z29.9 - ENCOUNTER FOR PROPHYLACTIC MEASURES, UNSPECIFIED SNOMED Code(s): 671144296 Comment: on lovenox sc (7) Full code status Current Visit: Yes Status: Acute Code(s): Z78.9 - OTHER SPECIFIED HEALTH STATUS SNOMED Code(s): 608072988 Status and Disposition: Inpatient Attending: Indu Ornelas Attestation Documenting Resident: Donna Sanderson Supervising Physician: Indu Ornelas Attestation: This service has been performed in part by a resident under the direction of a teaching physician.I, Indu Ornelas, performed the service, or was physically present during the critical, or wood portions of the service, furnished by the resident. I participated in the management of the patient.
[2019-03-30] MEDS: Mometasone/Formoter 200/5 MDI INH SCH ×2 (08:17→19:38)
[2019-03-30] MEDS ORDERED: Furosemide TAB* 20 MG PO SCH (09:00)
[2019-03-30] MEDS ORDERED: Spironolactone TAB* 25 MG PO SCH (09:00)
[2019-03-30] MEDS: Insulin LISPRO* 1 UNITS UNIT SUBCUT SCH (09:23)
[2019-03-30] MEDS: Atorvastatin* 80 MG TAB PO SCH (09:46)
[2019-03-30] MEDS: Folic Acid TAB* 1 MG PO SCH (09:46)
[2019-03-30] MEDS: Lidocaine PATCH 5%* 1 PATCH TRANSDERM SCH (09:46)
[2019-03-30] MEDS: Metoprolol Tartrate TAB* 25 MG PO SCH (09:46)
[2019-03-30] MEDS: Multivitamins/Minerals TAB PO SCH (09:47)
[2019-03-30] MEDS: Thiamine TAB* 100 MG TAB PO SCH (09:47)
[2019-03-30] MEDS: Aspirin 81 mg CHEW TAB* 81 MG TAB.CHEW PO SCH (09:47)
[2019-03-30] MEDS: predniSONE TAB* 50 MG PO SCH (09:47)
[2019-03-30] MEDS: Sertraline* 100 MG TAB PO SCH (09:47)
[2019-03-30] MEDS: Albuterol/Ipratropium NEB.SOL* Albuterol 2.5 MG/Ipratropium 0.5 MG 3 ML INH PRN (10:46)
[2019-03-30 11:47] LABS: BUN/Creatinine Ratio 26.1 (8-20); Calcium 8.7 mg/dL (8.6-10.3); EGFR Non-African American 186.7 (>60); Magnesium 1.8 mg/dL (1.9-2.7)
[2019-03-30] MEDS ORDERED: Magnesium Sulfate 1 GM IV* 1 GM/100 ML BAG IV ONE (12:49)
[2019-03-30 14:38] LABS: Hepatitis B Surface Antigen Negative (Negative)
[2019-03-30] MEDS ORDERED: REVEFENACIN 175 MCG IH SCH (14:59)
[2019-03-30] MEDS: REVEFENACIN 175 MCG IH SCH (15:08)
--- NOTE | 2019-03-30 17:22 | OP ---
Operative Report - Blank - Operative Report Date of Operation: 03/29/19 Note: Procedure: Therapeutic Paracentesis Indication: Moderate ascites Consent for operation or procedure: Risks and benefits discussed with patient and consent obtained Physician(s): Dr. Worthington; Dr. Sanderson Anesthesia: 1% of Lidocaine A time-out was completed, verifying correct patient, procedure, site, positioning, and implant or special equipment if applicable. Patient positioned supine with slightly raised head end of the bed. Abdomen examined with ultrasound for appropriate site placement. Site marked and prepared with swabs of betadine. Site draped with sterile dressing. Wheel of lidocaine placed. Lidocaine then introduced deep to the peritoneum. Skin punctured with an blade scalpel. Paracentesis needle was placed through the skin into the abdominal cavity. 4.2 L of fluid was removed. The needle was withdrawn and the site cleaned and bandaged with gauze and tape. Estimated Blood Loss: minimal Complications: The patient tolerated the procedure well without complications.
[2019-03-30] MEDS: traZODone TAB* 100 MG PO SCH (20:18)
[2019-03-30] MEDS: Montelukast Sodium TAB* 10 MG PO SCH (20:19)
[2019-03-30] MEDS: Pantoprazole TAB * 40 MG TAB PO SCH (20:19)
[2019-03-30] MEDS: Lidocaine Patch REMOVE* 1 NOTE MISC SCH (20:21)
[2019-03-30] MEDS ORDERED: Metoprolol Succinate XL TAB* 25 MG PO SCH (21:00)
[2019-03-31 03:42] VITALS: BP 123/67
[2019-03-31 06:07] LABS: BUN/Creatinine Ratio 19.2 (8-20); Calcium 8.9 mg/dL (8.6-10.3); EGFR African American 196.2 (>60); EGFR Non-African American 162.1 (>60); Potassium 4.5 mmol/L (3.5-5.0)
--- NOTE | 2019-03-31 06:46 | PN ---
Subjective Date of Service: 03/31/19 Interval History: HD 4 on 03/31 58 M with Alcohol use disorder,COPD, HYperlipidemia, DM2 presented with worsening of SOB and abdominal distension for 3 weeks. Found to have moderate ascites with nodular liver and splenomegaly on CT. Echo shows EF of 60-65%. Therapeutic tap done yesterday- 4.2 L fluid removed. NO acute overnight events VS stable; on 2 l of o2. BMP-Normal Doesnot have any complaint Doing well Has some cough which he states is chronic Objective Active Medications: Acetaminophen (Tylenol Tab*) 650 mg PO Q4H PRN PRN Reason: MILD PAIN or TEMP > 100.4 Hydrocodone Bitart/Acetaminophen ([place] 5-325 Tab*) 1 tab PO BID PRN PRN Reason: PAIN - SEVERE Last Admin: 03/29/19 21:22 Dose: 1 tab Al Hydrox/Mg Hydrox/Simethicone (Maalox Plus*) 30 ml PO Q6H PRN PRN Reason: INDIGESTION Albuterol (Ventolin Hfa Inhaler*) 2 puff INH Q4H PRN PRN Reason: WHEEZING Last Admin: 03/28/19 21:35 Dose: 2 puff Albuterol/Ipratropium (Duoneb (Albuterol 2.5 Mg/Ipratropium 0.5 Mg)) 1 neb INH Q4H PRN PRN Reason: SOB/WHEEZING Last Admin: 03/30/19 10:46 Dose: 1 neb Aspirin (Aspirin 81 Mg Chew Tab*) 81 mg PO DAILY [facility] Last Admin: 03/30/19 09:47 Dose: 81 mg Atorvastatin Calcium (Lipitor*) 80 mg PO DAILY [facility] Last Admin: 03/30/19 09:46 Dose: 80 mg Folic Acid (Folvite Tab*) 1 mg PO DAILY [facility] Last Admin: 03/30/19 09:46 Dose: 1 mg Furosemide (Lasix Tab*) 20 mg PO 0900 [facility] Last Admin: 03/30/19 05:20 Dose: 20 mg Guaifenesin (Mucinex*) 600 mg PO BID PRN PRN Reason: COUGH Last Admin: 03/29/19 21:22 Dose: 600 mg Hydroxyzine HCl (Atarax Tab*) 25 mg PO TID PRN PRN Reason: ANXIETY Lidocaine (Lidoderm 5% Patch*) 1 patch TRANSDERM DAILY [facility] Last Admin: 03/30/19 09:46 Dose: 1 patch Metoprolol Succinate (Toprol Xl Tab*) 25 mg PO BEDTIME [facility] Last Admin: 03/30/19 20:18 Dose: 25 mg Mometasone Furoate/Formoterol Fumar (Dulera 200/5 Mdi*) 2 puff INH BID [facility] Last Admin: 03/30/19 19:38 Dose: 2 puff Montelukast Sodium (Singulair Tab*) 10 mg PO BEDTIME [facility] Last Admin: 03/30/19 20:19 Dose: 10 mg Multivitamins/Minerals (Theragran/Minerals Tab*) 1 tab PO DAILY [facility] Last Admin: 03/30/19 09:47 Dose: 1 tab Pto:(Revefenacin [ (Yupelri] 175 Mcg)) 175 mcg IH DAILY [facility] Pantoprazole Sodium (Protonix Tab*) 40 mg PO BEDTIME [facility] Last Admin: 03/30/19 20:19 Dose: 40 mg Pharmacy Profile Note (Lidocaine Patch Remove*) 1 note N/A 2100 [facility] Last Admin: 03/30/19 20:21 Dose: 1 note Prednisone (Deltasone Tab*) 50 mg PO DAILY [facility] Last Admin: 03/30/19 09:47 Dose: 50 mg Sertraline HCl (Zoloft*) 200 mg PO DAILY [facility] Last Admin: 03/30/19 09:47 Dose: 200 mg Spironolactone (Aldactone Tab*) 50 mg PO 0900 [facility] Last Admin: 03/30/19 05:19 Dose: 50 mg Thiamine HCl (Vitamin B-1 Tab*) 100 mg PO DAILY [facility] Last Admin: 03/30/19 09:47 Dose: 100 mg Trazodone HCl (Desyrel Tab*) 150 mg PO BEDTIME [facility] Last Admin: 03/30/19 20:18 Dose: 150 mg Vital Signs - 8 hr 03/30/19 03/31/19 23:15 03:15 Temperature 98.9 F 98.0 F Pulse Rate 83 56 Respiratory 18 18 Rate Blood Pressure 114/64 123/67 (mmHg) O2 Sat by Pulse 96 97 Oximetry Oxygen Devices in Use Now: Nasal Cannula Exam: Patient is siting on a chair with nasal canula HEENT: Normocephalic and atraumatic Lungs: clear Heart: S1/S2 heard with no murmur Abdomen: Distended and nontender. Normal Bs heard Extremities: Pitting edema on b/l LE Neuro: Alert and oriented. Moving all four extremities Result Diagrams: 03/29/19 04:17 03/31/19 05:17 Assess/Plan/Problems-Billing Assessment: 58 M with Alcohol use disorder,COPD, HYperlipidemia, DM2, CAD(s/p stent) presented with worsening of SOB and abdominal distension for 3 weeks. Found to have moderate ascites with nodular liver and splenomegaly on CT. Echo shows EF of 60-65%. Therapeutic done on 03/29-removed 4.2 L - Patient Problems (1) Cirrhosis of liver Status: Acute Comment: alcohol-induced; Hep B and Hep c ruled out drinks 15 beers a day for last 5 years buthe has been drinking 5 beers for last20 years has ascites; decompensated; MELD score of 9. no evidence of SBP Diagnostic tap on 03/27 Therapeutic tap on 03/29- removed 4.2 L of fluid on furosemide 20 mg and spironolactone 50 mg. limit salt intake can be d/c (2) COPD exacerbation Status: Acute Code(s): J44.1 - CHRONIC OBSTRUCTIVE PULMONARY DISEASE W (ACUTE ) EXACERBATION SNOMED Code(s): 111093813 Comment: patient is having worsening SOB with diffuse wheezes. He is on 2l of o2. On GARCIA, LAMA, LABA and oral prednisone(day 3) (3) Alcohol use disorder Status: Acute Code(s): IHW3185 - SNOMED Code(s): 4859133 Comment: drinks 15 beer a day. ast is 2 times higher than alt counselled about cessation of alcohol (4) Diabetes Status: Acute Code(s): E11.9 - TYPE 2 DIABETES MELLITUS WITHOUT COMPLICATIONS SNOMED Code(s): 32395155 Comment: on insulin sliding scale (5) Coronary artery disease Status: Acute Code(s): I25.10 - ATHSCL HEART DISEASE OF [place] CORONARY ARTERY W/O ANG PCTRS SNOMED Code(s): 05973562 Comment: hx of CT; s/p 2 stent ECho 0n 03/28 shows EF of 60-65% with normal diastolic function ON aspirin, atorvastatin,metoprolol (6) DVT prophylaxis Status: Acute Code(s): Z29.9 - ENCOUNTER FOR PROPHYLACTIC MEASURES, UNSPECIFIED SNOMED Code(s): 045010460 Comment: on lovenox sc (7) Full code status Status: Acute Code(s): Z78.9 - OTHER SPECIFIED HEALTH STATUS SNOMED Code(s) : 406196496 Status and Disposition: Inpatient d/c today Attending: Indu Ornelas Attestation Documenting Resident: Donna Sanderson Supervising Physician: Indu Ornelas Attestation: This service has been performed in part by a resident under the direction of a teaching physician.I, Indu Ornelas, performed the service, or was physically present during the critical, or person portions of the service, furnished by the resident. I participated in the management of the patient.
[2019-03-31] MEDS: Mometasone/Formoter 200/5 MDI INH SCH (08:09)
--- NOTE | 2019-03-31 08:37 | PN ---
Hospitalist Progress Note Date of Service: 03/31/19 Subjective: Freeman Coughlin states he is feeling much better after his paracentesis. His shortness of breath and abdominal distension has improved. He had no acute overnight events. Objective: Exam: Patient is sitting on a chair comfortably watching TV HEENT: Normocephalic and atraumatic; sclera anicteric Lungs: Clear to auscultation Heart: S1/S2 heard with no murmur Abdomen: Distended and nontender. No hepatosplenomegaly appreciated. Normal BS Extremities: No pitting edema on extremities, ecchymosis present on bilateral upper extremities. Neuro: Alert and oriented. Patient is able to move all four extremities and sensation and strength are intact. Carbon Dioxide: 39 H Anion gap: 1 L Creatinine: 0.52 L Glucose: 104 H EKG: Sinus rhythm, 68 beats per minute, no ST elevation or depression. There is T-wave inversion in V1 which is consistent with previous EKG. Chest x-ray: Small bilateral pleural effusions. CT: Splenomegaly with nodular appearing liver. Cirrhosis should be considered. There is moderate degree of ascites noted. No abnormal dilation of bowel was noted. Echocardiogram: The cavity size is normal. Wall thickness is normal. Systolic function is normal. The estimated ejection fraction is 60-65%. No hailey wall motion abnormalities. Compared to study of 10/12/18 little change is noted. Abdominal ultrasound: moderate amount of ascites seen throughout the abdomen and pelvis with the largest pocket in the right lower quadrant. Assessment: 58 year old male with alcohol use disorder, COPD, hyperlipidemia, DM2, CAD (s/p stent) came in with worsening of SOB and abdominal distension for 3 weeks. He was found to have moderate ascites with nodular liver and splenomegaly on CT. Echocardiogram showed an EF of 60-65%. Plan: -COPD exacerbation: Pneumonia can be ruled out due to no fever or sweats. COPD exacerbation likely is due to smoking. Patient is having SOB with diffuse wheezes. He is on albuterol (2 puff INH Q4H PRN), Duoneb (albuterol 2.5mg/ipratropium 0.5mg 1 neb INH Q4H PRN), Dulera 200/ 5 mdi (mometasone furoate/formoterol fumar) 2 puff INH BID and oral prednisone 50 mg PO daily [facility]. -Cirrhosis of liver: He drinks 15 beers a day for the last 5 years, but had been drinking 5 beers a day for the last 20 years. MELD score of 9. No evidence of SBP. -Alcohol use disorder: Drinks 15 beers a day and AST/ALT is 2:1. Patient is on [facility] protocol for withdrawal. -Diabetes: Has type 2 diabetes mellitus -Coronary artery disease: Patient has a history of [place]; s/p 2 stent. Echocardiogram on 03/28 showed EF of 60-65% with normal diastolic function. He is on aspirin (81 mg PO), atorvastatin (80 mg PO), and metoprolol (25 mg PO).
[2019-03-31] MEDS: Thiamine TAB* 100 MG TAB PO SCH (10:15)
[2019-03-31] MEDS: Aspirin 81 mg CHEW TAB* 81 MG TAB.CHEW PO SCH (10:15)
[2019-03-31] MEDS: Multivitamins/Minerals TAB PO SCH (10:15)
[2019-03-31] MEDS: Atorvastatin* 80 MG TAB PO SCH (10:15)
[2019-03-31] MEDS: HYDROcodone/ACETAMIN 5-325 MG* 1 TAB PO PRN (10:15)
[2019-03-31] MEDS: Spironolactone TAB* 25 MG PO SCH (10:15)
[2019-03-31] MEDS: predniSONE TAB* 50 MG PO SCH (10:15)
[2019-03-31] MEDS: Sertraline* 100 MG TAB PO SCH (10:15)
[2019-03-31] MEDS: Folic Acid TAB* 1 MG PO SCH (10:15)
[2019-03-31] MEDS: Furosemide TAB* 20 MG PO SCH (10:15)
[2019-03-31] MEDS: Lidocaine PATCH 5%* 1 PATCH TRANSDERM SCH (10:16)
--- NOTE | 2019-03-31 16:09 | DS ---
CC: Dr. Rosalino Kimball * DISCHARGE SUMMARY: DATE OF ADMISSION: 03/27/19 DATE OF DISCHARGE: 03/31/19 PRIMARY CARE PHYSICIAN: Dr. Rosalino Kimball. PRIMARY DIAGNOSES: 1. Cirrhosis with ascites. 2. Chronic obstructive pulmonary disease exacerbation. 3. Alcohol use disorder. 4. Active tobacco use. SECONDARY DIAGNOSES: 1. Chronic back pain. 2. Myocardial infarction, status post stent in 2017. 3. Obstructive sleep apnea, not on CPAP given recent diagnosis, pending insurance issues. 4. Gastroesophageal reflux disease. PROCEDURES: Diagnostic paracentesis in ER on 03/27/19. Therapeutic large volume paracentesis on 03/29/19, ultrasound guided. DISCHARGE MEDICATIONS: 1. Furosemide 20 mg daily. 2. Spironolactone 50 mg daily. 3. Aspirin 81 mg daily. 4. Metoprolol succinate 25 mg nightly. 5. Linagliptin 5 mg daily. 6. Empagliflozin 10 mg daily. 7. Atorvastatin 80 mg daily. 8. Advair 2 puffs twice a day. 9. Albuterol 2 puffs every 4 hours as needed for shortness of breath. 10. Sertraline 200 mg daily. 11. Trazodone 150 mg nightly. 12. Revefenacin 1 inhalation daily. 13. Multivitamin daily. 14. Hydroxyzine 25 mg up to 3 times a day as needed for anxiety. 15. Montelukast 10 mg at bedtime. 16. Sharon 5/325 twice a day as needed for back pain. 17. Pantoprazole 40 mg at bedtime. 18. Guaifenesin 600 mg twice a day as needed for cough. 19. Lidocaine patch 5% topically daily as needed for back pain. HISTORY OF PRESENT ILLNESS: Mr. Coughlin is a 58-year-old male with a history of alcohol use disorder, COPD and active tobacco use, chronic back pain, coronary artery disease, status post stent 2017, who presented to the emergency room due to multiple problems including shortness of breath with abdominal distention. Over the last 2 to 3 days, the patient has experienced progressive worsening of shortness of breath, orthopnea, dyspnea on exertion, and abdominal distention. 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 He has been getting very short of breath easily and has required more frequent use of his albuterol inhaler. Additionally, he has gained 30 pounds in the last 6 weeks. His lower extremity edema has been progressively worsening over the past 2 weeks and is now into his thighs. The patient has been feeling fatigued with decreased appetite over the last month. He typically experiences nausea after meals related to acid reflux, but it has been worsening as his belly has been increasing in size. Also, the patient has had more frequent episodes of diarrhea over the last 4 days. HOSPITAL COURSE: In the emergency department, the patient had stable vital signs, but was hypoxic on room air. The CT showed significant ascites. So, hospitalist service was consulted to perform paracentesis. Only 100 cc of fluid was able to be removed and as the patient was still experiencing significant symptoms with new oxygen requirements, he was admitted to Medicine for further treatment. His diagnostic tap ruled out spontaneous bacterial peritonitis. The patient denied history of cirrhosis. He had a large volume paracentesis performed with Interventional Radiology guidance, which removed 4.2 L. The patient reported significant improvement in his symptoms after removal of fluid, as well as with treatment for COPD exacerbation. He completed a 5-day burst of prednisone throughout admission and he also received nebulizer treatment. He was extensively educated on the importance of alcohol and tobacco cessation for his problems of cirrhosis and COPD. The patient did not exhibit signs of alcohol withdrawal throughout admission. Furthermore, he was given extensive education on lifestyle changes for cirrhosis, which include again avoidance of alcohol, but also avoidance of NSAIDs or high salt foods in order to prevent reaccumulation of ascitic fluid. He was educated to maintain a low-salt diet, as well as to have excellent medication adherence to his new diuretics. It was noted in patient's history that he may have had diabetes in the past; however, here we see a most recent A1c from this year was 6.4 without patient being on medications throughout his hospitalization. He had fingersticks with highest reading of 160 even after being given steroids. So, his insulin was discontinued. He was not given medications for diabetes on discharge. The patient was education on importance of trying to use less of his home opioid medication given his liver disease and respiratory status and untreated sleep apnea. He was given lidocaine patch and encouraged to pursue physical therapy for his chronic back pain. The patient expressed desire to have less medications, which was another reason why we recommended taking less of his narcotics. His metoprolol tartrate was switched to metoprolol succinate. He is encouraged to work with his primary care physician on reduction polypharmacy. He is also encouraged to follow up with the acetylene operator as he may need ongoing screening for varices as well as hepatocellular carcinoma. The patient was referred for visiting nurse as well for help with medication management. He was unable to be titrated off supplemental oxygen during this hospitalization and it was thought that he possibly is chronically hypoxic, it was just undiagnosed. So, he was set up with oxygen services for home. PERTINENT STUDIES AND LABS: Hemoglobin normal with MCV slightly elevated to 99. Creatinine 0.52, stable throughout admission. AST double ALT with alk phos increased to 272 and decreased to 215 on discharge. Total bilirubin within normal limits. TSH 2.76. Peritoneal fluid with 26 neutrophils and fluid albumin 0.4. Serum albumin 3.0. Hep B not immune. Hep C negative. LDL 73 with triglycerides 83. Abdomen and pelvis CT on admission with splenomegaly with nodular appearing liver, possibility of cirrhosis should be considered. There is moderate degree of ascites noted. No abnormal dilatation of bowel is noted. Abdominal ultrasound with moderate amount of ascites. Transthoracic echocardiogram with LV systolic function normal with estimated EF 60% to 65%, wall motion is normal without regional wall motion abnormalities. RV systolic function normal. MV, AV and TV with trace regurgitation with PV without significant regurgitation. PASP could not be calculated. DISCHARGE PLAN: The patient is to follow up closely with his primary care physician for ongoing management of his chronic medical problems and assistance with abstinence from tobacco and alcohol. He was also referred to GI for his new diagnosis of cirrhosis with continued monitoring of his volume status and likely screening for varices and hepatocellular carcinoma. He is encouraged to weigh himself daily and to contact one of his providers if he is noted to have increased weight as this could be a sign of fluid accumulation. He is to continue on home medications as prescribed above and to follow a low-salt diet and resume activity as tolerated. He was discharged on oxygen and his home oxygen saturation goal is 88% to 92%. He and his were extensively education on return precautions, which include but are not limited to sudden abdominal pain associated with fevers, signs of GI bleed, or confusion. DISPOSITION: Home. CONDITION: Improved. TIME SPENT: Approximately 60 minutes was spent on discharge of this patient, more than half of which was spent with care coordination at bedside for interview and exam. [id number]/[facility] #: [id number] [facility]
== END 2019-03-31 13:40 | disposition home or self-care (01) | DRG 264 ==
LOC: ED 11:21 → MEDTELE 20:19
PROVIDERS: ADMIT Internal Medicine; ATTEND Internal Medicine
PROC: 0W9G3ZX Drainage of Peritoneal Cavity, Percutaneous Approach, Diagnostic (ICD-10-PCS; principal; 2019-03-27)
PROC: 0W9G3ZZ Drainage of Peritoneal Cavity, Percutaneous Approach (ICD-10-PCS; 2019-03-29)
DX: K70.31 Alcoholic cirrhosis of liver with ascites (principal); J44.1 Chronic obstructive pulmonary disease with (acute) exacerbation; G89.29 Other chronic pain; M54.9 Dorsalgia, unspecified; G47.33 Obstructive sleep apnea (adult) (pediatric); K21.9 Gastro-esophageal reflux disease without esophagitis; I25.10 Atherosclerotic heart disease of native coronary artery without angina pectoris; R09.02 Hypoxemia; E11.9 Type 2 diabetes mellitus without complications; I08.3 Combined rheumatic disorders of mitral, aortic and tricuspid valves; E78.5 Hyperlipidemia, unspecified; F41.9 Anxiety disorder, unspecified; I27.20 Pulmonary hypertension, unspecified; F17.210 Nicotine dependence, cigarettes, uncomplicated; R53.83 Other fatigue; R19.7 Diarrhea, unspecified; F32.9 Major depressive disorder, single episode, unspecified; M19.90 Unspecified osteoarthritis, unspecified site; K63.5 Polyp of colon; J30.2 Other seasonal allergic rhinitis; R16.1 Splenomegaly, not elsewhere classified; R91.1 Solitary pulmonary nodule; Z72.89 Other problems related to lifestyle; I25.2 Old myocardial infarction; Z95.5 Presence of coronary angioplasty implant and graft; Z79.82 Long term (current) use of aspirin; Z99.81 Dependence on supplemental oxygen; Z80.0 Family history of malignant neoplasm of digestive organs; Z82.5 Family history of asthma and other chronic lower respiratory diseases
CPT/HCPCS: 36415; 49083; 71045; 74176; 76705; 80048; 80053; 80061; 82042; 82945; 83605; 83630; 83735; 83880; 83986; 84157; 84443; 84484; 85025; 85027; 85610; 85730; 86140; 86706; 86803; 87340; 87641; 89051; 93005; 93306; 94640; 99284; 99406; A9270-GY; C8929; G8978-GP-CJ; G8979-GP-CH; J1650; J1940; J3475; J7512

== ENCOUNTER 2021-04-08 14:30 | Inpatient (IN) ==
[2021-04-08 15:49] LABS: ABS Eosinophils 0.1 10^3/ul (0-0.6); ABS Lymphocytes 1.2 10^3/ul (1.0-4.8); ABS Monocytes 0.9 10^3/ul (0-0.8); ABS Neutrophils 6.2 10^3/ul (1.5-7.7); Eosinophil % 1.6 %; Hematocrit 30 % (42-52); Hemoglobin 10.3 g/dL (14.0-18.0); Lymphocyte % 14.6 %; Mean Corpuscular HGB Conc 34 g/dL (31-36); Mean Corpuscular Hemoglobin 32 pg (27-31); Mean Corpuscular Volume 96 fL (80-94); Mean Platelet Volume 8.3 fL (7.4-10.4); Platelet Count 127 10^3/uL (150-450); Red Blood Count 3.17 10^6 /uL (4.18-5.48); Red Cell Distribution Width 16 % (10-15); White Blood Count 8.5 10^3/uL (3.5-10.8)
[2021-04-08 16:06] LABS: ALT 24 U/L (7-52); AST 41 U/L (13-39); Albumin/Globulin Ratio 0.9 (1-3); Alkaline Phosphatase 104 U/L (35-149); Ammonia 155 mcmol/L (16-53); Anion Gap 3 mmol/L (2-11); Blood Urea Nitrogen 15 mg/dL (6-24); C Reactive Protein 30.34 mg/L (<8.01); CO2 Carbon Dioxide 32 mmol/L (22-32); Calcium 8.7 mg/dL (8.6-10.3); Chloride 103 mmol/L (101-111); EGFR African American 171.8 (>60); Globulin 3.2 g/dL (2-4); Glucose 97 mg/dL (70-100); Magnesium 1.8 mg/dL (1.9-2.7); Potassium 4.4 mmol/L (3.5-5.0); Sodium 138 mmol/L (135-145); Total Protein 6.2 g/dL (6.4-8.9)
[2021-04-08 16:07] LABS: Troponin I 0.01 ng/mL (<0.03)
[2021-04-08 16:10] LABS: BNP 89 pg/mL (<=100)
[2021-04-08 16:16] LABS: Activated Partial Thrombo Time 28.1 seconds (26.0-38.0); INR 1.5 (0.86-1.15)
[2021-04-08 16:24] LABS: PCO2 Arterial 46 mmHg (35-45); PO2 Arterial 95 mmHg (80-100)
[2021-04-08] MEDS ORDERED: Lactulose 30 ml UDC PO ONE (16:36)
[2021-04-08 17:47] LABS: Alcohol, S < 13 mg/dL (<13)
[2021-04-08] MEDS ORDERED: Furosemide 40 mg/4 ml IV VIAL IV ONE (18:18)
[2021-04-08] MEDS ORDERED: Dextrose 50% Syringe 50 ml 25 GM/50 ML SYRINGE IV PUSH PRN (18:19)
[2021-04-08] MEDS ORDERED: Albuterol/Ipratropium NEB.SOL (2.5/0.5 MG) 3 ML NEB.SOLN INH PRN (18:23)
[2021-04-08 18:53] LABS: Urine Appearance Clear; Urine Bilirubin Negative (Negative); Urine Blood Negative (Negative); Urine Color Amber; Urine Glucose Negative (Negative); Urine Ketones 1+ (Negative); Urine Nitrite Negative (Negative); Urine Protein 1+(30 mg/dL) (Negative); Urine Specific Gravity 1.027 (1.002-1.030); Urine Urobilinogen Negative (Negative)
[2021-04-08 19:00] LABS: Urine Bacteria Absent (Absent); Urine Red Blood Cell 3+(>10/hpf) (Absent); Urine Squamous Epithelial Cell Present (Absent); Urine White Blood Cell Trace(0-5/hpf) (Absent)
[2021-04-08 19:16] LABS: Urine Benzodiazepine Screen Presumptive Positive (None Detect); Urine Cannabinoids Screen None Detected (None Detect); Urine Opiates Screen None Detected (None Detect)
[2021-04-08 19:31] LABS: Rapid COVID-19 Molecular Undetected (Undetected)
[2021-04-08] MEDS: Lactulose 30 ml UDC PO SCH (22:06)
[2021-04-08] MEDS: Enoxaparin 40 MG/0.4 ML SYR SUBCUT SCH (22:07)
[2021-04-09 05:32] LABS: ABS Basophils 0.1 10^3/ul (0-0.2); ABS Eosinophils 0.3 10^3/ul (0-0.6); ABS Lymphocytes 1.5 10^3/ul (1.0-4.8); ABS Monocytes 1.1 10^3/ul (0-0.8); ABS Neutrophils 5.4 10^3/ul (1.5-7.7); Eosinophil % 3.8 %; Hematocrit 28 % (42-52); Hemoglobin 9.5 g/dL (14.0-18.0); Lymphocyte % 18.3 %; Mean Corpuscular HGB Conc 34 g/dL (31-36); Mean Corpuscular Hemoglobin 32 pg (27-31); Mean Corpuscular Volume 95 fL (80-94); Mean Platelet Volume 8.3 fL (7.4-10.4); Platelet Count 117 10^3/uL (150-450); Red Blood Count 2.96 10^6 /uL (4.18-5.48); Red Cell Distribution Width 16 % (10-15); White Blood Count 8.4 10^3/uL (3.5-10.8)
[2021-04-09 05:50] LABS: Albumin 2.8 g/dL (3.2-5.2); Albumin/Globulin Ratio 0.9 (1-3); Calcium 8.7 mg/dL (8.6-10.3); EGFR African American 171.8 (>60); Globulin 3.1 g/dL (2-4); Potassium 3.8 mmol/L (3.5-5.0); Total Bilirubin 1.5 mg/dL (0.2-1.0); Total Protein 5.9 g/dL (6.4-8.9)
[2021-04-09] MEDS ORDERED: Flu vaccine *QUAD* 2021-22* 0.5 ML SYRINGE IM ONE (09:00)
[2021-04-09] MEDS: Furosemide 40 mg/4 ml IV VIAL IV SLOW PU SCH ×2 (09:04→18:07)
[2021-04-09] MEDS: Lactulose 30 ml UDC PO SCH ×3 (09:08→20:20)
[2021-04-09] MEDS: Nystatin TOP POWDER 15 GM BTL TOPICAL SCH ×2 (09:44→20:16)
[2021-04-09] MEDS: Mometasone/Formoter 200/5 MDI INH SCH ×2 (09:47→20:22)
[2021-04-09] MEDS: Albuterol HFA INHALER 8 gm MDI INH PRN (09:49)
[2021-04-09 10:10] LABS: INR 1.55 (0.86-1.15)
[2021-04-09 14:28] LABS: Body Fluid Source Peritonial Fluid
[2021-04-09 15:41] LABS: Body Fluid WBC 297 /mcL
[2021-04-09 16:15] LABS: Body Fluid Appearance Clear; Body Fluid Color Yellow
[2021-04-09 16:30] LABS: Body Fluid Mono 62 %; Body Fluid Other Cells 50; Body Fluid Total Cells Counted 200
[2021-04-09] MEDS: Albumin Human 25% 25 GM/100 ML BTL IV SCH ×2 (20:14→22:36)
[2021-04-09] MEDS: Enoxaparin 40 MG/0.4 ML SYR SUBCUT SCH (20:15)
[2021-04-10] MEDS: Mometasone/Formoter 200/5 MDI INH SCH ×2 (07:24→20:10)
[2021-04-10 08:49] LABS: INR 1.6 (0.86-1.15)
[2021-04-10 08:50] LABS: ABS Eosinophils 0.2 10^3/ul (0-0.6); ABS Monocytes 0.8 10^3/ul (0-0.8); ABS Neutrophils 3.9 10^3/ul (1.5-7.7); Eosinophil % 3.5 %; Hematocrit 26 % (42-52); Hemoglobin 8.6 g/dL (14.0-18.0); Lymphocyte % 17.5 %; Mean Corpuscular HGB Conc 33 g/dL (31-36); Mean Corpuscular Hemoglobin 32 pg (27-31); Mean Corpuscular Volume 96 fL (80-94); Nucleated Red Blood Cells % 0.1; Red Cell Distribution Width 16 % (10-15)
[2021-04-10 09:04] LABS: Albumin 2.9 g/dL (3.2-5.2); Calcium 8.5 mg/dL (8.6-10.3); EGFR African American 194.9 (>60); Globulin 2.9 g/dL (2-4); Potassium 3.4 mmol/L (3.5-5.0); Total Bilirubin 1.2 mg/dL (0.2-1.0); Total Protein 5.8 g/dL (6.4-8.9)
[2021-04-10] MEDS: Lactulose 30 ml UDC PO SCH ×3 (09:14→20:15)
[2021-04-10] MEDS: Furosemide 40 mg/4 ml IV VIAL IV SLOW PU SCH ×2 (09:14→17:52)
[2021-04-10] MEDS ORDERED: Ondansetron 4 mg VIAL 2 MG/ML 2 ml VIAL IV PRN (09:16)
[2021-04-10] MEDS: Nystatin TOP POWDER 15 GM BTL TOPICAL SCH ×2 (09:25→20:16)
[2021-04-10 10:53] LABS: Mean Platelet Volume 8.5 fL (7.4-10.4); Platelet Count 99 10^3/uL (150-450)
[2021-04-10 13:03] LABS: Fluid Type, Protein, Total PERITONEAL; Total Protein, BF 0.9 g/dL
[2021-04-10 13:04] LABS: Albumin, BF 0.6 g/dL; Fluid Type, Albumin PERITONEAL
[2021-04-10 13:15] LABS: Glucose, BF 96 mg/dL
[2021-04-10] MEDS: Enoxaparin 40 MG/0.4 ML SYR SUBCUT SCH (20:16)
[2021-04-11] MEDS: Mometasone/Formoter 200/5 MDI INH SCH ×2 (07:50→20:57)
[2021-04-11] MEDS: Furosemide 40 mg/4 ml IV VIAL IV SLOW PU SCH ×2 (08:01→18:04)
[2021-04-11] MEDS: Lactulose 30 ml UDC PO SCH ×3 (08:03→19:59)
[2021-04-11] MEDS: Nystatin TOP POWDER 15 GM BTL TOPICAL SCH ×2 (08:03→20:01)
[2021-04-11 09:58] LABS: ABS Eosinophils 0.2 10^3/ul (0-0.6); ABS Lymphocytes 0.9 10^3/ul (1.0-4.8); ABS Monocytes 0.8 10^3/ul (0-0.8); ABS Neutrophils 5.2 10^3/ul (1.5-7.7); Eosinophil % 3.5 %; Hematocrit 27 % (42-52); Lymphocyte % 12.9 %; Mean Corpuscular HGB Conc 33 g/dL (31-36); Mean Corpuscular Hemoglobin 32 pg (27-31); Mean Corpuscular Volume 96 fL (80-94); Mean Platelet Volume 8.9 fL (7.4-10.4); Platelet Count 92 10^3/uL (150-450); Red Blood Count 2.84 10^6 /uL (4.18-5.48); Red Cell Distribution Width 16 % (10-15); White Blood Count 7.2 10^3/uL (3.5-10.8)
[2021-04-11 10:11] LABS: Albumin 2.9 g/dL (3.2-5.2); Calcium 8.5 mg/dL (8.6-10.3); EGFR African American 178.9 (>60); EGFR Non-African American 147.8 (>60); Potassium 3.3 mmol/L (3.5-5.0); Total Bilirubin 1.4 mg/dL (0.2-1.0); Total Protein 5.9 g/dL (6.4-8.9)
[2021-04-11 11:31] LABS: Magnesium 1.4 mg/dL (1.9-2.7)
[2021-04-11] MEDS ORDERED: Potassium Chlor 20 meq TAB.ER PO ONE (15:35)
[2021-04-11] MEDS: Magnesium Sulfate 2 gm BAG 2 GM/50 ML BAG IVPB SCH ×2 (18:05→20:00)
[2021-04-11] MEDS: Enoxaparin 40 MG/0.4 ML SYR SUBCUT SCH (20:00)
[2021-04-11] MEDS: Albuterol HFA INHALER 8 gm MDI INH PRN (20:59)
[2021-04-12 06:12] LABS: ABS Eosinophils 0.3 10^3/ul (0-0.6); ABS Lymphocytes 1.1 10^3/ul (1.0-4.8); ABS Monocytes 0.9 10^3/ul (0-0.8); ABS Neutrophils 4.3 10^3/ul (1.5-7.7); Eosinophil % 4.3 %; Hematocrit 25 % (42-52); Hemoglobin 8.4 g/dL (14.0-18.0); Lymphocyte % 16.2 %; Mean Corpuscular HGB Conc 33 g/dL (31-36); Mean Corpuscular Hemoglobin 32 pg (27-31); Mean Corpuscular Volume 95 fL (80-94); Mean Platelet Volume 9.2 fL (7.4-10.4); Platelet Count 87 10^3/uL (150-450); Red Blood Count 2.66 10^6 /uL (4.18-5.48); Red Cell Distribution Width 16 % (10-15); White Blood Count 6.5 10^3/uL (3.5-10.8)
[2021-04-12 06:25] LABS: ALT 31 U/L (7-52); AST 55 U/L (13-39); Albumin 2.8 g/dL (3.2-5.2); Albumin/Globulin Ratio 1.1 (1-3); Alkaline Phosphatase 94 U/L (35-149); Anion Gap 2 mmol/L (2-11); Blood Urea Nitrogen 13 mg/dL (6-24); CO2 Carbon Dioxide 35 mmol/L (22-32); Calcium 8.2 mg/dL (8.6-10.3); Chloride 100 mmol/L (101-111); EGFR African American 199.3 (>60); EGFR Non-African American 164.7 (>60); Globulin 2.6 g/dL (2-4); Glucose 126 mg/dL (70-100); Magnesium 1.9 mg/dL (1.9-2.7); Potassium 3.4 mmol/L (3.5-5.0); Sodium 137 mmol/L (135-145); Total Protein 5.4 g/dL (6.4-8.9)
[2021-04-12] MEDS: Albuterol HFA INHALER 8 gm MDI INH PRN (08:07)
[2021-04-12] MEDS: Mometasone/Formoter 200/5 MDI INH SCH ×2 (08:07→20:50)
[2021-04-12] MEDS: Furosemide 40 mg/4 ml IV VIAL IV SLOW PU SCH (08:54)
[2021-04-12] MEDS: Lactulose 30 ml UDC PO SCH ×3 (08:54→21:10)
[2021-04-12] MEDS: Nystatin TOP POWDER 15 GM BTL TOPICAL SCH ×2 (09:01→22:00)
[2021-04-12 10:39] LABS: PCO2 Arterial 55 mmHg (35-45)
[2021-04-12 10:47] LABS: PO2 Arterial 54 mmHg (80-100)
[2021-04-12] MEDS ORDERED: Potassium Chlor 20 meq TAB.ER PO ONE (13:55)
[2021-04-12 15:01] LABS: % Iron Saturation 8 % (15-55); Iron 24 ug/dL (50-212); Total Iron Binding Capacity 283 mcg/dL (250-450); Transferrin 202 mg/dL (203-362); Unsaturated Iron Binding < 268 ug/dL
[2021-04-12 15:27] LABS: Folate 11.22 ng/mL (5.90-24.80)
[2021-04-12 15:28] LABS: Vitamin B12 815 pg/mL (180-914)
[2021-04-12] MEDS: Enoxaparin 40 MG/0.4 ML SYR SUBCUT SCH (21:21)
[2021-04-13] MEDS: Mometasone/Formoter 200/5 MDI INH SCH ×2 (07:32→19:59)
[2021-04-13] MEDS: Albuterol HFA INHALER 8 gm MDI INH PRN (07:33)
[2021-04-13] MEDS: Lactulose 30 ml UDC PO SCH ×3 (07:42→20:50)
[2021-04-13] MEDS: Nystatin TOP POWDER 15 GM BTL TOPICAL SCH ×2 (07:56→20:51)
[2021-04-13 09:30] LABS: ABS Eosinophils 0.3 10^3/ul (0-0.6); ABS Lymphocytes 0.8 10^3/ul (1.0-4.8); ABS Monocytes 0.7 10^3/ul (0-0.8); ABS Neutrophils 3.9 10^3/ul (1.5-7.7); Hematocrit 25 % (42-52); Hemoglobin 8.3 g/dL (14.0-18.0); Lymphocyte % 14.3 %; Mean Corpuscular HGB Conc 33 g/dL (31-36); Mean Corpuscular Hemoglobin 31 pg (27-31); Mean Corpuscular Volume 95 fL (80-94); Mean Platelet Volume 9.3 fL (7.4-10.4); Nucleated Red Blood Cells % 0.1; Platelet Count 83 10^3/uL (150-450); Red Blood Count 2.68 10^6 /uL (4.18-5.48); Red Cell Distribution Width 15 % (10-15); White Blood Count 5.7 10^3/uL (3.5-10.8)
[2021-04-13 09:49] LABS: Albumin 2.7 g/dL (3.2-5.2); Calcium 8.3 mg/dL (8.6-10.3); EGFR African American 203.9 (>60); EGFR Non-African American 168.5 (>60); Globulin 2.8 g/dL (2-4); Potassium 3.6 mmol/L (3.5-5.0); Total Protein 5.5 g/dL (6.4-8.9)
[2021-04-13] MEDS ORDERED: Potassium Chlor 20 meq TAB.ER PO ONE (10:01)
[2021-04-14 05:48] LABS: ABS Eosinophils 0.3 10^3/ul (0-0.6); ABS Lymphocytes 0.9 10^3/ul (1.0-4.8); ABS Monocytes 0.8 10^3/ul (0-0.8); ABS Neutrophils 2.9 10^3/ul (1.5-7.7); Eosinophil % 5.3 %; Hematocrit 25 % (42-52); Hemoglobin 8.2 g/dL (14.0-18.0); Lymphocyte % 19.3 %; Mean Corpuscular HGB Conc 33 g/dL (31-36); Mean Corpuscular Hemoglobin 31 pg (27-31); Mean Corpuscular Volume 94 fL (80-94); Mean Platelet Volume 9.3 fL (7.4-10.4); Platelet Count 81 10^3/uL (150-450); Red Blood Count 2.64 10^6 /uL (4.18-5.48); Red Cell Distribution Width 15 % (10-15); White Blood Count 4.8 10^3/uL (3.5-10.8)
[2021-04-14 05:59] LABS: Blood Urea Nitrogen 11 mg/dL (6-24); CO2 Carbon Dioxide 33 mmol/L (22-32); Chloride 103 mmol/L (101-111); Glucose 118 mg/dL (70-100); Potassium 4.1 mmol/L (3.5-5.0); Sodium 136 mmol/L (135-145)
[2021-04-14] MEDS: Mometasone/Formoter 200/5 MDI INH SCH (07:04)
[2021-04-14] MEDS: Lactulose 30 ml UDC PO SCH (11:39)
[2021-04-14] MEDS: Nystatin TOP POWDER 15 GM BTL TOPICAL SCH (11:39)
[2021-04-14 12:15] VITALS: BP 109/62
== END 2021-04-14 13:25 | disposition home or self-care (01) | DRG 279 ==
LOC: ED 14:30 → SUATTDRO 20:42 → MEDTELE 20:42
PROVIDERS: ADMIT Internal Medicine; ATTEND Internal Medicine

== ENCOUNTER 2021-05-25 12:14 | Inpatient (IN) ==
[2021-05-25] MEDS ORDERED: Al Hydrox/Mg Hydrox/Simet LIQ 30 ML UDC PO PRN (20:13)
[2021-05-25] MEDS ORDERED: Ondansetron 4 mg VIAL 2 MG/ML 2 ml VIAL IV PRN (20:13)
[2021-05-25] MEDS ORDERED: Dextrose 50% Syringe 50 ml 25 GM/50 ML SYRINGE IV PUSH PRN (20:24)
[2021-05-25] MEDS: Pantoprazole VIAL 40 MG VIAL IV SCH (21:55)
[2021-05-25] MEDS: Lactulose 30 ml UDC PO SCH (21:56)
[2021-05-25] MEDS ORDERED: Magnesium CITRATE LIQ 300 ML BTL PO ONE (22:00)
[2021-05-25] MEDS ORDERED: PEG 3000 GI LAVAGE 1 GALLON PO ONE (22:00)
[2021-05-25 22:07] LABS: ABS Lymphocytes 0.5 10^3/ul (1.0-4.8); ABS Monocytes 0.4 10^3/ul (0-0.8); ABS Neutrophils 5.1 10^3/ul (1.5-7.7); Eosinophil % 0.2 %; Hematocrit 25 % (42-52); Hemoglobin 8.4 g/dL (14.0-18.0); Lymphocyte % 7.9 %; Mean Corpuscular HGB Conc 33 g/dL (31-36); Mean Corpuscular Hemoglobin 29 pg (27-31); Mean Corpuscular Volume 86 fL (80-94); Mean Platelet Volume 8.7 fL (7.4-10.4); Platelet Count 81 10^3/uL (150-450); Red Blood Count 2.93 10^6 /uL (4.18-5.48); Red Cell Distribution Width 16 % (10-15)
[2021-05-25] MEDS: Albuterol HFA INHALER 8 gm MDI INH PRN (22:53)
[2021-05-26] MEDS: Albuterol HFA INHALER 8 gm MDI INH PRN (02:13)
[2021-05-26 04:58] LABS: ABS Lymphocytes 0.7 10^3/ul (1.0-4.8); ABS Monocytes 0.7 10^3/ul (0-0.8); ABS Neutrophils 4.8 10^3/ul (1.5-7.7); Eosinophil % 0.1 %; Hematocrit 26 % (42-52); Hemoglobin 8.5 g/dL (14.0-18.0); Lymphocyte % 11.6 %; Mean Corpuscular HGB Conc 33 g/dL (31-36); Mean Corpuscular Hemoglobin 28 pg (27-31); Mean Corpuscular Volume 86 fL (80-94); Mean Platelet Volume 8.8 fL (7.4-10.4); Nucleated Red Blood Cells % 0.1; Platelet Count 81 10^3/uL (150-450); Red Blood Count 3.03 10^6 /uL (4.18-5.48); Red Cell Distribution Width 16 % (10-15); White Blood Count 6.2 10^3/uL (3.5-10.8)
[2021-05-26 05:13] LABS: Albumin 3.4 g/dL (3.2-5.2); Albumin/Globulin Ratio 1.3 (1-3); Calcium 8.9 mg/dL (8.6-10.3); Globulin 2.6 g/dL (2-4); Potassium 3.8 mmol/L (3.5-5.0); Total Bilirubin 3.4 mg/dL (0.2-1.0)
[2021-05-26] MEDS: SPIRIVA Respimat (tiotropium) 2.5 mcg/inh Inhaler INH SCH (08:00)
[2021-05-26] MEDS: Pantoprazole VIAL 40 MG VIAL IV SCH ×2 (08:11→20:26)
[2021-05-26] MEDS: Lactulose 30 ml UDC PO SCH ×2 (08:12→20:26)
[2021-05-26] MEDS: PrednisoLONE 3 MG/ML ORAL.SOLU 15 MG/5 ML ORAL.SOLN PO SCH (08:14)
[2021-05-26 09:41] LABS: Direct Bilirubin 1.3 mg/dL (0.03-0.18); Indirect Bilirubin 2.1 mg/dL (0.3-1.0)
[2021-05-26 10:10] LABS: Hematocrit 26 % (42-52); Hemoglobin 8.5 g/dL (14.0-18.0); Mean Corpuscular HGB Conc 33 g/dL (31-36); Mean Corpuscular Hemoglobin 28 pg (27-31); Mean Corpuscular Volume 87 fL (80-94); Mean Platelet Volume 9.1 fL (7.4-10.4); Platelet Count 82 10^3/uL (150-450); Red Blood Count 3.01 10^6 /uL (4.18-5.48); Red Cell Distribution Width 16 % (10-15); White Blood Count 5.9 10^3/uL (3.5-10.8)
[2021-05-26 10:12] LABS: INR 2.15 (0.86-1.15)
[2021-05-26] MEDS ORDERED: PEG 3000 GI LAVAGE 1 GALLON PO ONE (12:00)
[2021-05-27] MEDS: Albuterol HFA INHALER 8 gm MDI INH PRN ×3 (00:02→18:06)
[2021-05-27] MEDS: SPIRIVA Respimat (tiotropium) 2.5 mcg/inh Inhaler INH SCH (06:59)
[2021-05-27] MEDS: Lactulose 30 ml UDC PO SCH ×2 (10:49→20:27)
[2021-05-27] MEDS: Pantoprazole VIAL 40 MG VIAL IV SCH ×2 (10:49→20:27)
[2021-05-27] MEDS: PrednisoLONE 3 MG/ML ORAL.SOLU 15 MG/5 ML ORAL.SOLN PO SCH (17:56)
[2021-05-27] MEDS: Mometasone/Formoter 200/5 MDI INH SCH ×2 (18:07→19:44)
[2021-05-28 06:00] LABS: ABS Lymphocytes 0.4 10^3/ul (1.0-4.8); ABS Monocytes 0.3 10^3/ul (0-0.8); ABS Neutrophils 3.2 10^3/ul (1.5-7.7); Hematocrit 27 % (42-52); Hemoglobin 8.9 g/dL (14.0-18.0); Lymphocyte % 9.1 %; Mean Corpuscular HGB Conc 33 g/dL (31-36); Mean Corpuscular Hemoglobin 29 pg (27-31); Mean Corpuscular Volume 88 fL (80-94); Mean Platelet Volume 8.6 fL (7.4-10.4); Platelet Count 56 10^3/uL (150-450); Red Blood Count 3.07 10^6 /uL (4.18-5.48); Red Cell Distribution Width 16 % (10-15); White Blood Count 3.9 10^3/uL (3.5-10.8)
[2021-05-28 06:09] LABS: Albumin/Globulin Ratio 1.2 (1-3); Calcium 8.9 mg/dL (8.6-10.3); Globulin 2.5 g/dL (2-4); Potassium 3.9 mmol/L (3.5-5.0); Total Bilirubin 3.5 mg/dL (0.2-1.0); Total Protein 5.5 g/dL (6.4-8.9)
[2021-05-28] MEDS: Mometasone/Formoter 200/5 MDI INH SCH ×2 (06:56→22:13)
[2021-05-28] MEDS: SPIRIVA Respimat (tiotropium) 2.5 mcg/inh Inhaler INH SCH (07:00)
[2021-05-28] MEDS ORDERED: PEG 3000 GI LAVAGE 1 GALLON PO ONE (08:32)
[2021-05-28] MEDS: Pantoprazole VIAL 40 MG VIAL IV SCH ×2 (09:40→21:38)
[2021-05-28] MEDS: Lactulose 30 ml UDC PO SCH ×2 (09:41→21:36)
[2021-05-28] MEDS: PrednisoLONE 3 MG/ML ORAL.SOLU 15 MG/5 ML ORAL.SOLN PO SCH (10:46)
[2021-05-28] MEDS ORDERED: Lidocaine 2% PF 5 ML VIAL ONE (16:12)
[2021-05-28] MEDS ORDERED: fentaNYL 100 mcg/2 ml 50 MCG/ML VIAL ONE (16:12)
[2021-05-28] MEDS ORDERED: Midazolam 2 mg/2 ml VIAL 1 mg/ml 2 ml VIAL (2 mg) ONE (16:12)
[2021-05-28] MEDS ORDERED: Phenylephrine 40 mcg/mL 10mL (400mcg) SYRINGE ONE (16:44)
[2021-05-29 05:58] LABS: ABS Lymphocytes 0.7 10^3/ul (1.0-4.8); ABS Monocytes 0.5 10^3/ul (0-0.8); ABS Neutrophils 4.3 10^3/ul (1.5-7.7); Eosinophil % 0.5 %; Hematocrit 27 % (42-52); Hemoglobin 8.8 g/dL (14.0-18.0); Lymphocyte % 12.8 %; Mean Corpuscular HGB Conc 33 g/dL (31-36); Mean Corpuscular Hemoglobin 29 pg (27-31); Mean Corpuscular Volume 87 fL (80-94); Mean Platelet Volume 9.8 fL (7.4-10.4); Nucleated Red Blood Cells % 0.1; Platelet Count 60 10^3/uL (150-450); Red Blood Count 3.09 10^6 /uL (4.18-5.48); Red Cell Distribution Width 17 % (10-15); White Blood Count 5.5 10^3/uL (3.5-10.8)
[2021-05-29] MEDS: Mometasone/Formoter 200/5 MDI INH SCH ×2 (08:25→18:58)
[2021-05-29] MEDS: SPIRIVA Respimat (tiotropium) 2.5 mcg/inh Inhaler INH SCH (08:25)
[2021-05-29 08:38] LABS: Potassium 3.4 mmol/L (3.5-5.0)
[2021-05-29 08:39] LABS: Albumin 2.9 g/dL (3.2-5.2); Calcium 8.4 mg/dL (8.6-10.3); Total Bilirubin 3.1 mg/dL (0.2-1.0)
[2021-05-29 08:44] LABS: Albumin/Globulin Ratio 1.2 (1-3); Globulin 2.4 g/dL (2-4); Total Protein 5.3 g/dL (6.4-8.9)
[2021-05-29] MEDS: Pantoprazole VIAL 40 MG VIAL IV SCH ×2 (12:37→22:10)
[2021-05-29] MEDS: PrednisoLONE 3 MG/ML ORAL.SOLU 15 MG/5 ML ORAL.SOLN PO SCH (12:39)
[2021-05-29] MEDS: Lactulose 30 ml UDC PO SCH ×2 (12:40→22:28)
[2021-05-29] MEDS ORDERED: Potassium Chlor 20 meq TAB.ER PO ONE (13:08)
[2021-05-30] MEDS: Albuterol HFA INHALER 8 gm MDI INH PRN ×2 (02:16→21:08)
[2021-05-30 06:33] LABS: ABS Lymphocytes 0.4 10^3/ul (1.0-4.8); ABS Monocytes 0.4 10^3/ul (0-0.8); ABS Neutrophils 4.9 10^3/ul (1.5-7.7); Hematocrit 27 % (42-52); Hemoglobin 8.7 g/dL (14.0-18.0); Lymphocyte % 6.8 %; Mean Corpuscular HGB Conc 33 g/dL (31-36); Mean Corpuscular Hemoglobin 29 pg (27-31); Mean Corpuscular Volume 87 fL (80-94); Mean Platelet Volume 10.4 fL (7.4-10.4); Platelet Count 54 10^3/uL (150-450); Red Blood Count 3.04 10^6 /uL (4.18-5.48); Red Cell Distribution Width 17 % (10-15); White Blood Count 5.7 10^3/uL (3.5-10.8)
[2021-05-30 06:37] LABS: Albumin 2.7 g/dL (3.2-5.2); Albumin/Globulin Ratio 1.1 (1-3); Calcium 8.2 mg/dL (8.6-10.3); Globulin 2.4 g/dL (2-4); Magnesium 1.8 mg/dL (1.9-2.7); Potassium 4.4 mmol/L (3.5-5.0); Total Bilirubin 2.7 mg/dL (0.2-1.0); Total Protein 5.1 g/dL (6.4-8.9)
[2021-05-30] MEDS: Mometasone/Formoter 200/5 MDI INH SCH ×2 (09:04→20:59)
[2021-05-30] MEDS: SPIRIVA Respimat (tiotropium) 2.5 mcg/inh Inhaler INH SCH (09:04)
[2021-05-30] MEDS: Lactulose 30 ml UDC PO SCH ×2 (10:03→20:50)
[2021-05-30] MEDS: PrednisoLONE 3 MG/ML ORAL.SOLU 15 MG/5 ML ORAL.SOLN PO SCH (10:03)
[2021-05-30] MEDS: Pantoprazole VIAL 40 MG VIAL IV SCH ×2 (10:04→20:49)
[2021-05-30] MEDS ORDERED: Iron Sucrose 200 MG in NS 0.9% 100 ml BAG 100 ML IVPB ONE (13:25)
[2021-05-31] MEDS ORDERED: NS 0.9% 500 ml BAG 500 ML IV ONE (04:20)
[2021-05-31] MEDS: Mometasone/Formoter 200/5 MDI INH SCH ×2 (07:04→20:36)
[2021-05-31] MEDS: SPIRIVA Respimat (tiotropium) 2.5 mcg/inh Inhaler INH SCH (07:04)
[2021-05-31] MEDS: Pantoprazole VIAL 40 MG VIAL IV SCH ×2 (09:19→21:04)
[2021-05-31] MEDS: Lactulose 30 ml UDC PO SCH ×4 (09:19→21:04)
[2021-05-31] MEDS: PrednisoLONE 3 MG/ML ORAL.SOLU 15 MG/5 ML ORAL.SOLN PO SCH (10:54)
[2021-05-31 11:02] LABS: ABS Eosinophils 0.1 10^3/ul (0-0.6); ABS Lymphocytes 1.2 10^3/ul (1.0-4.8); ABS Monocytes 0.9 10^3/ul (0-0.8); ABS Neutrophils 6.5 10^3/ul (1.5-7.7); Albumin 2.8 g/dL (3.2-5.2); Albumin/Globulin Ratio 1.2 (1-3); Calcium 8.6 mg/dL (8.6-10.3); Globulin 2.4 g/dL (2-4); Hematocrit 29 % (42-52); Hemoglobin 9.6 g/dL (14.0-18.0); Lymphocyte % 13.8 %; Mean Corpuscular HGB Conc 33 g/dL (31-36); Mean Corpuscular Hemoglobin 29 pg (27-31); Mean Corpuscular Volume 88 fL (80-94); Mean Platelet Volume 9.2 fL (7.4-10.4); Platelet Count 57 10^3/uL (150-450); Potassium 3.8 mmol/L (3.5-5.0); Red Blood Count 3.32 10^6 /uL (4.18-5.48); Red Cell Distribution Width 17 % (10-15); Total Bilirubin 2.9 mg/dL (0.2-1.0); Total Protein 5.2 g/dL (6.4-8.9); White Blood Count 8.8 10^3/uL (3.5-10.8)
[2021-05-31] MEDS: Iron Sucrose 200 MG in NS 0.9% 100 ml BAG 100 ML IVPB SCH (11:36)
[2021-06-01 08:15] LABS: ABS Eosinophils 0.1 10^3/ul (0-0.6); ABS Lymphocytes 1.3 10^3/ul (1.0-4.8); ABS Monocytes 0.8 10^3/ul (0-0.8); ABS Neutrophils 5.6 10^3/ul (1.5-7.7); Eosinophil % 1.3 %; Hematocrit 29 % (42-52); Hemoglobin 9.4 g/dL (14.0-18.0); Lymphocyte % 16.3 %; Mean Corpuscular HGB Conc 33 g/dL (31-36); Mean Corpuscular Hemoglobin 29 pg (27-31); Mean Corpuscular Volume 89 fL (80-94); Mean Platelet Volume 10.3 fL (7.4-10.4); Nucleated Red Blood Cells % 0.2; Platelet Count 52 10^3/uL (150-450); Red Blood Count 3.25 10^6 /uL (4.18-5.48); Red Cell Distribution Width 17 % (10-15); White Blood Count 7.8 10^3/uL (3.5-10.8)
[2021-06-01 08:28] LABS: Albumin 2.6 g/dL (3.2-5.2); Calcium 8.7 mg/dL (8.6-10.3); Potassium 3.8 mmol/L (3.5-5.0); Total Bilirubin 2.8 mg/dL (0.2-1.0)
[2021-06-01 08:34] LABS: Albumin/Globulin Ratio 1.2 (1-3); Globulin 2.2 g/dL (2-4); Total Protein 4.8 g/dL (6.4-8.9)
[2021-06-01] MEDS: Pantoprazole VIAL 40 MG VIAL IV SCH ×2 (09:42→20:30)
[2021-06-01] MEDS: Lactulose 30 ml UDC PO SCH ×4 (09:44→20:30)
[2021-06-01] MEDS: PrednisoLONE 3 MG/ML ORAL.SOLU 15 MG/5 ML ORAL.SOLN PO SCH (09:44)
[2021-06-01] MEDS: Iron Sucrose 200 MG in NS 0.9% 100 ml BAG 100 ML IVPB SCH (09:45)
[2021-06-01] MEDS: SPIRIVA Respimat (tiotropium) 2.5 mcg/inh Inhaler INH SCH (10:00)
[2021-06-01] MEDS: Mometasone/Formoter 200/5 MDI INH SCH ×2 (10:00→21:12)
[2021-06-02 07:22] LABS: ABS Eosinophils 0.2 10^3/ul (0-0.6); ABS Lymphocytes 1.2 10^3/ul (1.0-4.8); ABS Monocytes 0.9 10^3/ul (0-0.8); ABS Neutrophils 5.9 10^3/ul (1.5-7.7); Eosinophil % 2.6 %; Hematocrit 31 % (42-52); Hemoglobin 10.1 g/dL (14.0-18.0); Mean Corpuscular HGB Conc 33 g/dL (31-36); Mean Corpuscular Hemoglobin 29 pg (27-31); Mean Corpuscular Volume 89 fL (80-94); Mean Platelet Volume 11.1 fL (7.4-10.4); Nucleated Red Blood Cells % 0.3; Platelet Count 61 10^3/uL (150-450); Red Blood Count 3.46 10^6 /uL (4.18-5.48); Red Cell Distribution Width 17 % (10-15); White Blood Count 8.3 10^3/uL (3.5-10.8)
[2021-06-02 07:35] LABS: Albumin 2.7 g/dL (3.2-5.2); Albumin/Globulin Ratio 1.1 (1-3); Globulin 2.5 g/dL (2-4); Potassium 3.8 mmol/L (3.5-5.0); Total Bilirubin 2.8 mg/dL (0.2-1.0); Total Protein 5.2 g/dL (6.4-8.9)
[2021-06-02 07:37] LABS: INR 2.01 (0.86-1.15)
[2021-06-02] MEDS: Mometasone/Formoter 200/5 MDI INH SCH (08:37)
[2021-06-02] MEDS: SPIRIVA Respimat (tiotropium) 2.5 mcg/inh Inhaler INH SCH (08:37)
[2021-06-02] MEDS: Pantoprazole VIAL 40 MG VIAL IV SCH (09:23)
[2021-06-02] MEDS: Iron Sucrose 200 MG in NS 0.9% 100 ml BAG 100 ML IVPB SCH (09:30)
[2021-06-02] MEDS: PrednisoLONE 3 MG/ML ORAL.SOLU 15 MG/5 ML ORAL.SOLN PO SCH (09:30)
[2021-06-02] MEDS: Lactulose 30 ml UDC PO SCH ×2 (10:00→17:28)
[2021-06-02] MEDS ORDERED: Albumin Human 25% 25 GM/100 ML BTL IV SCH (17:33)
[2021-06-02 20:07] VITALS: BP 100/56
== END 2021-06-02 20:50 | disposition home or self-care (01) | DRG 254 ==
LOC: SUATTDRO 17:40 → MEDTELE 17:40
PROVIDERS: ADMIT Internal Medicine; ATTEND Internal Medicine

== ENCOUNTER 2021-06-11 19:28 | Inpatient (IN) ==
[2021-06-11] MEDS ORDERED: Vancomycin 1,000 MG in NS 0.9% 250 ml 250 ML IVPB ONE (20:29)
[2021-06-11] MEDS ORDERED: Dextrose 50% Syringe 50 ml 25 GM/50 ML SYRINGE IV PUSH PRN (20:36)
[2021-06-11] MEDS ORDERED: Albuterol HFA INHALER 8 gm MDI INH PRN (20:43)
[2021-06-11] MEDS ORDERED: Vancomycin per Pharmacy 1 EA NOTE FOLLOW UP SCH (21:00)
[2021-06-11] MEDS ORDERED: Pantoprazole VIAL 40 MG VIAL IV SCH (21:00)
[2021-06-11] MEDS ORDERED: Vancomycin 2,000 MG in NS 0.9% 500 ml BAG 500 ML IVPB ONE (21:00)
[2021-06-11 21:07] LABS: ALT 115 U/L (7-52); Albumin 2.3 g/dL (3.2-5.2); Alkaline Phosphatase 95 U/L (35-149); Blood Urea Nitrogen 45 mg/dL (6-24); CO2 Carbon Dioxide 25 mmol/L (22-32); Calcium 7.5 mg/dL (8.6-10.3); Chloride 103 mmol/L (101-111); Globulin 2.3 g/dL (2-4); Glucose 98 mg/dL (70-100); Magnesium 2.2 mg/dL (1.9-2.7); Sodium 133 mmol/L (135-145); Total Protein 4.6 g/dL (6.4-8.9); eGFR CKD-EPI 34.9 (>60)
[2021-06-11] MEDS ORDERED: Albumin Human 25% 50 GM/200 ML BTL IV ONE (21:16)
[2021-06-11 21:29] LABS: Anion Gap 5 mmol/L (2-11)
[2021-06-11] MEDS ORDERED: NS 0.9% 500 ml BAG 500 ML ONE (22:27)
[2021-06-11] MEDS: Lactulose 30 ml UDC PO SCH (22:29)
[2021-06-11] MEDS: Hydrocortisone INJ 100 MG/2ML 2 ML VIAL IV SCH (22:29)
[2021-06-11] MEDS: Cefepime 1 GM in Dextrose 1 GM/50 ML BAG IV SCH (22:29)
[2021-06-11 22:36] LABS: Hematocrit 33 % (42-52); Hemoglobin 10.6 g/dL (14.0-18.0); Mean Corpuscular HGB Conc 33 g/dL (31-36); Mean Corpuscular Hemoglobin 30 pg (27-31); Mean Corpuscular Volume 92 fL (80-94); Mean Platelet Volume 10.9 fL (7.4-10.4); Platelet Count 91 10^3/uL (150-450); Red Blood Count 3.54 10^6 /uL (4.18-5.48); Red Cell Distribution Width 27 % (10-15)
[2021-06-11 22:37] LABS: INR 1.92 (0.86-1.15)
[2021-06-11 22:47] LABS: ABS Basophils 0.1 10^3/ul (0-0.2); ABS Eosinophils 0.2 10^3/ul (0-0.6); ABS Monocytes 1.5 10^3/ul (0-0.8); ABS Neutrophils 12.2 10^3/ul (1.5-7.7); Eosinophil % 1.2 %; Lymphocyte % 6.5 %; Rapid COVID-19 Molecular Undetected (Undetected)
[2021-06-11 22:50] LABS: C Reactive Protein 23.75 mg/L (<8.01); Phosphorus 4.9 mg/dL (2.5-5.0)
[2021-06-11] MEDS: Norepinephrine 16MCG/ML IVPRE 4,000 MCG/250 ML BAG IV SCH (22:55)
[2021-06-11] MEDS: Albumin Human 25% 25 GM/100 ML BTL IV SCH (23:05)
[2021-06-11 23:07] LABS: Potassium Redraw 5.1 mmol/L (3.5-5.0)
[2021-06-11 23:59] LABS: Influenza A Molecular Negative (Negative); Influenza B Molecular Negative (Negative)
[2021-06-12 00:06] LABS: TSH Ultra Thyroid Stim Horm 1.94 mcIU/mL (0.34-5.60)
[2021-06-12] MEDS: Albumin Human 25% 25 GM/100 ML BTL IV SCH ×3 (00:10→03:55)
[2021-06-12 00:29] LABS: Urine Appearance Cloudy; Urine Bilirubin Negative (Negative); Urine Blood 2+ (Negative); Urine Color Amber; Urine Glucose Negative (Negative); Urine Ketones Negative (Negative); Urine Nitrite Negative (Negative); Urine Protein 2+(100 mg/dL) (Negative); Urine Specific Gravity 1.023 (1.002-1.030); Urine Urobilinogen Positive (Negative)
[2021-06-12 00:43] LABS: Urine Bacteria Absent (Absent); Urine Granular Casts Present (Absent); Urine Red Blood Cell 2+(6-10/hpf) (Absent); Urine Squamous Epithelial Cell Present (Absent); Urine White Blood Cell 1+(6-10/hpf) (Absent); Urine White Blood Cell Casts Present (Absent)
[2021-06-12] MEDS ORDERED: Albumin Human 25% 50 GM/200 ML BTL IV ONE (01:00)
[2021-06-12] MEDS: Hydrocortisone INJ 100 MG/2ML 2 ML VIAL IV SCH ×3 (05:22→21:53)
[2021-06-12 06:18] LABS: ABS Basophils 0.1 10^3/ul (0-0.2); ABS Lymphocytes 0.6 10^3/ul (1.0-4.8); ABS Monocytes 0.7 10^3/ul (0-0.8); ABS Neutrophils 9.9 10^3/ul (1.5-7.7); Eosinophil % 0.3 %; Hematocrit 26 % (42-52); Hemoglobin 8.6 g/dL (14.0-18.0); Lymphocyte % 5.4 %; Mean Corpuscular HGB Conc 33 g/dL (31-36); Mean Corpuscular Hemoglobin 30 pg (27-31); Mean Corpuscular Volume 91 fL (80-94); Mean Platelet Volume 10.6 fL (7.4-10.4); Platelet Count 68 10^3/uL (150-450); Red Blood Count 2.83 10^6 /uL (4.18-5.48); Red Cell Distribution Width 26 % (10-15); White Blood Count 11.2 10^3/uL (3.5-10.8)
[2021-06-12 06:23] LABS: INR 2.33 (0.86-1.15)
[2021-06-12 06:32] LABS: Albumin 3.6 g/dL (3.2-5.2); Calcium 9.2 mg/dL (8.6-10.3); Globulin 1.8 g/dL (2-4); Total Bilirubin 3.5 mg/dL (0.2-1.0); Total Protein 5.4 g/dL (6.4-8.9); eGFR CKD-EPI 25.6 (>60)
[2021-06-12] MEDS ORDERED: Octreotide Acetate 50 MCG in NS 0.9% 50 ML 50 ML IV ONE (06:39)
[2021-06-12 06:41] LABS: Potassium 5.2 mmol/L (3.5-5.0)
[2021-06-12] MEDS: Octreotide Acetate 500 MCG in NS 0.9% 100 ml BAG 100 ML IV SCH ×2 (07:27→17:13)
[2021-06-12] MEDS ORDERED: Perflutren Lipid Microsphere 3 ML VIAL ONE (08:46)
[2021-06-12 09:09] LABS: Urine Creatinine Concentration 161.87 mg/dL; Urine Sodium Concentration < 18 mmol/L
[2021-06-12] MEDS: Lactulose 30 ml UDC PO SCH ×4 (09:59→21:54)
[2021-06-12] MEDS: Cefepime 1 GM in Dextrose 1 GM/50 ML BAG IV SCH ×3 (09:59→22:42)
[2021-06-12] MEDS: Pantoprazole VIAL 40 MG VIAL IV SCH ×2 (09:59→21:54)
[2021-06-12] MEDS: SPIRIVA Respimat (tiotropium) 2.5 mcg/inh Inhaler INH SCH ×2 (10:14→10:22)
[2021-06-12] MEDS: Mometasone/Formoter 200/5 MDI INH SCH ×3 (10:14→21:07)
[2021-06-12] MEDS ORDERED: Vancomycin Random Level NOTE FOLLOW UP ONE (11:30)
[2021-06-12 12:39] LABS: Vancomycin Random 20.1 mcg/mL
[2021-06-12 13:57] LABS: Body Fluid Source Peritonial Fluid
[2021-06-12 14:31] LABS: Body Fluid WBC 79 /mcL
[2021-06-12 15:25] LABS: Body Fluid Appearance Clear; Body Fluid Color Yellow; Body Fluid Mono 68 %; Body Fluid Total Cells Counted 200
[2021-06-12] MEDS: Norepinephrine 16MCG/ML IVPRE 4,000 MCG/250 ML BAG IV SCH (20:05)
[2021-06-12 20:10] LABS: ABS Lymphocytes 0.5 10^3/ul (1.0-4.8); ABS Monocytes 0.7 10^3/ul (0-0.8); ABS Neutrophils 9.2 10^3/ul (1.5-7.7); Hematocrit 25 % (42-52); Hemoglobin 8.1 g/dL (14.0-18.0); Lymphocyte % 5.1 %; Mean Corpuscular HGB Conc 33 g/dL (31-36); Mean Corpuscular Hemoglobin 30 pg (27-31); Mean Corpuscular Volume 92 fL (80-94); Mean Platelet Volume 10.5 fL (7.4-10.4); Platelet Count 65 10^3/uL (150-450); Red Blood Count 2.69 10^6 /uL (4.18-5.48); Red Cell Distribution Width 27 % (10-15); White Blood Count 10.4 10^3/uL (3.5-10.8)
[2021-06-13] MEDS: Norepinephrine 16MCG/ML IVPRE 4,000 MCG/250 ML BAG IV SCH ×3 (04:01→13:17)
[2021-06-13] MEDS: Hydrocortisone INJ 100 MG/2ML 2 ML VIAL IV SCH (04:18)
[2021-06-13 04:32] LABS: Hematocrit 24 % (42-52); Hemoglobin 7.9 g/dL (14.0-18.0); Mean Corpuscular HGB Conc 33 g/dL (31-36); Mean Corpuscular Hemoglobin 30 pg (27-31); Mean Corpuscular Volume 91 fL (80-94); Mean Platelet Volume 10.9 fL (7.4-10.4); Platelet Count 66 10^3/uL (150-450); Red Blood Count 2.61 10^6 /uL (4.18-5.48); Red Cell Distribution Width 28 % (10-15); White Blood Count 10.5 10^3/uL (3.5-10.8)
[2021-06-13 04:38] LABS: Albumin 3.3 g/dL (3.2-5.2); Albumin/Globulin Ratio 1.7 (1-3); Calcium 8.8 mg/dL (8.6-10.3); Magnesium 2.6 mg/dL (1.9-2.7); Total Bilirubin 3.5 mg/dL (0.2-1.0); Total Protein 5.3 g/dL (6.4-8.9); eGFR CKD-EPI 20.7 (>60)
[2021-06-13 04:39] LABS: Potassium 5.1 mmol/L (3.5-5.0)
[2021-06-13] MEDS: Octreotide Acetate 500 MCG in NS 0.9% 100 ml BAG 100 ML IV SCH ×2 (05:56→14:00)
[2021-06-13] MEDS ORDERED: Vancomycin Random Level NOTE FOLLOW UP ONE (06:00)
[2021-06-13] MEDS: SPIRIVA Respimat (tiotropium) 2.5 mcg/inh Inhaler INH SCH (07:40)
[2021-06-13] MEDS: Mometasone/Formoter 200/5 MDI INH SCH ×2 (07:41→21:30)
[2021-06-13 08:05] LABS: Phosphorus 5.5 mg/dL (2.5-5.0)
[2021-06-13] MEDS: Lactulose 30 ml UDC PO SCH ×4 (08:17→21:30)
[2021-06-13] MEDS: Pantoprazole VIAL 40 MG VIAL IV SCH ×2 (08:18→21:30)
[2021-06-13 08:34] LABS: INR 2.33 (0.86-1.15)
[2021-06-13] MEDS ORDERED: Phytonadione SUBCUT/IM Adult 10 MG/ML AMP (IM or SQ not preferred route) SUBCUT ONE (09:15)
[2021-06-13] MEDS: Cefepime 1 GM in Dextrose 1 GM/50 ML BAG IV SCH (10:40)
[2021-06-13] MEDS: Albumin Human 25% 25 GM/100 ML BTL IV SCH ×4 (12:39→17:32)
[2021-06-13 14:15] LABS: Glucose, BF 126 mg/dL
[2021-06-13 14:19] LABS: Fluid Type, Amylase PERITONEAL
[2021-06-13 14:20] LABS: BF PH 7.9
[2021-06-13 14:23] LABS: Albumin, BF 0.3 g/dL; Fluid Type, Albumin PERITONEAL; Fluid Type, Protein, Total PERITONEAL; Total Protein, BF 0.6 g/dL
[2021-06-13 14:38] LABS: Hematocrit 22 % (42-52); Hemoglobin 7.3 g/dL (14.0-18.0)
[2021-06-13 15:47] LABS: Albumin 3.6 g/dL (3.2-5.2); Albumin/Globulin Ratio 1.7 (1-3); Calcium 9.1 mg/dL (8.6-10.3); Globulin 2.1 g/dL (2-4); Potassium 4.6 mmol/L (3.5-5.0); Total Bilirubin 3.6 mg/dL (0.2-1.0); Total Protein 5.7 g/dL (6.4-8.9); eGFR CKD-EPI 20.3 (>60)
[2021-06-13] MEDS ORDERED: Hydrocortisone INJ 100 MG/2ML 2 ML VIAL IV SCH (16:00)
[2021-06-13] MEDS: Ondansetron 4 mg VIAL 2 MG/ML 2 ml VIAL IV PRN (17:18)
[2021-06-13] MEDS ORDERED: Prochlorperazine 5 mg/ml 2 ml VIAL (10 mg) IV PRN (18:32)
[2021-06-13] MEDS ORDERED: Prochlorperazine 5 mg/ml 2 ml VIAL (10 mg) ONE (18:37)
[2021-06-13] MEDS ORDERED: Furosemide 20 mg/2 ml IV VIAL IV ONE (19:30)
[2021-06-13] MEDS ORDERED: Lorazepam PYXIS KEY PRN (21:24)
[2021-06-13] MEDS ORDERED: LORazepam 2 mg VIAL 1 ml IV PUSH PRN (21:24)
[2021-06-13 22:32] LABS: Body Fluid Source Peritonial Fluid
[2021-06-13 22:34] LABS: Body Fluid Appearance Clear; Body Fluid Color Yellow
[2021-06-13 22:47] LABS: Body Fluid Mono 23 %; Body Fluid Other Cells 7; Body Fluid Total Cells Counted 200
[2021-06-13 22:49] LABS: Body Fluid WBC 121 /mcL
[2021-06-14 12:22] VITALS: BP 92/51
[2021-06-14] MEDS: Ondansetron 4 mg VIAL 2 MG/ML 2 ml VIAL IV PRN (19:17)
[2021-06-14] MEDS: LORazepam 2 mg VIAL 1 ml IV PUSH PRN (19:39)
[2021-06-15] MEDS ORDERED: Albuterol 2.5mg/3 ml (0.083%) NEB.SOLN INH PRN (09:46)
[2021-06-15] MEDS: LORazepam 2 mg VIAL 1 ml IV PUSH PRN ×3 (11:05→22:40)
[2021-06-16] MEDS: LORazepam 2 mg VIAL 1 ml IV PUSH PRN (01:33)
[2021-06-16] MEDS ORDERED: Morphine ORAL CONCENTRATE 5 MG/0.25 ML ORAL.SYRIN PO PRN (11:45)
[2021-06-16] MEDS ORDERED: Atropine 1% (ORAL/SL) 15 ML BTL SL PRN (12:31)
[2021-06-17 10:27] LABS: Fluid Type, Protein, Total PERITONEAL FLUID; Total Protein, BF 0.6 g/dL
== END 2021-06-16 14:55 | disposition hospice, home (50) | DRG 280 ==
LOC: ED 19:28 → EDHOLD 20:29 → SUATTDRO 20:29 → ICU 06-12 13:53 → MED 06-14 11:01
PROVIDERS: ADMIT Student in an Organized Health Care Education/Training Program; ATTEND Internal Medicine